=== PATIENT | male | born 1965 | race Caucasian/White ===

== ENCOUNTER → 2016-08-12 | Outpatient (CLI) | payer OTHER ==
[~2016-08-12] MED LIST: AMLO-114 PO; ATOR-22 PO; CETI10TA84 PO; CYCL10TA6 PO; CYM/30 PO; DICL50TA3 PO; GABA800T PO; HYDR-3124 PO; LANS15CA6 PO; LISI-461 PO; MISO200T PO; NF656 TOP; OXYC1TAB3 PO; PRED20TA PO; RANI150T3 PO; TRAM1CAP; TRAM1TAB96 PO; TRAM200T16 PO; TRAZ50TA35 PO
== END | disposition home or self-care (01) ==
LOC: C.RDSM 08:00
PROVIDERS: ATTEND Orthopaedic Surgery Sports Medicine
DX: M17.0 Bilateral primary osteoarthritis of knee (principal)

== ENCOUNTER 2017-02-07 03:36 | Emergency (ER) | payer OTHER ==
[~2017-02-07] VITALS: Ht 185.4 cm; Wt 156.0 kg
[~2017-02-07 03:36] MED LIST changes: -HYDR-3124 PO; -LANS15CA6 PO; -NF656 TOP; -OXYC1TAB3 PO; -PRED20TA PO; -RANI150T3 PO; -TRAM1TAB96 PO; -TRAM200T16 PO
[2017-02-07 03:39] VITALS: TEMP 37.5; Ht 185.4 cm; Wt 156.0 kg
[2017-02-07] MEDS ORDERED: KETOROLAC TROMETHAMINE 30 MG/ML VIAL IV STA (03:54)
[2017-02-07] MEDS ORDERED: ONDANSETRON INJ 2 MG/ML 2 ML VIAL IV STA (03:54)
[2017-02-07] MEDS ORDERED: MoRPHine SULFATE 10 MG/ML CARP/VIAL IV STA ×2 (03:54→06:06)
[2017-02-07] MEDS ORDERED: DEXAMETHASONE SOD INJ 10 MG/ML VIAL IV ONE (04:00)
[2017-02-07] MEDS ORDERED: SODIUM CHLORIDE 0.9% 1000ML 1,000 ML IV ONE (04:00)
[2017-02-07 04:29] LABS: BASO % 0.4 %; BASO ABS # 0.05 K/uL (0-0.2); COMPLETE YES; EOS % 1.3 %; HEMATOCRIT 42.2 % (42-52); IG% 0.4 %; LYMPH % 18.9 %; LYMPH ABS # 2.14 K/uL (1.2-3.4); MEAN CELL VOLUME 87.2 fL (80-100); MEAN CORPUSCULAR HEMOGLOBIN 28.9 pg (25-34); MEAN CORPUSCULAR HGB CONC 33.2 g/dl (32-36); MEAN PLATELET VOLUME 8.8 fL (7.4-10.4); MONO % 8.8 %; NEUT % 70.2 %; PLATELET COUNT 344 K/uL (130-400); RED BLOOD COUNT 4.84 M/uL (4.7-6.1); WHITE BLOOD COUNT 11.31 K/uL (4.8-10.8)
[2017-02-07 04:32] LABS: URINE APPEARANCE CLEAR (CLEAR); URINE BILIRUBIN NEG (NEG); URINE COLOR YELLOW; URINE NITRITE NEG (NEG); URINE SPECIFIC GRAVITY 1.011 (1.000-1.030); UROBILINOGEN NEG (NEG); ZZUR CULT IF INDIC CLEAN CATCH NO
[2017-02-07 04:39] LABS: MANUAL MICROSCOPIC REQUIRED? NO; REVIEW REQ? NO
[2017-02-07 04:47] LABS: BUN/CREATININE RATIO 8.9 (10-20); POTASSIUM 3.5 mmol/L (3.5-5.1)
[2017-02-07 04:50] LABS: ALB/GLOB RATIO 0.9 (0.9-2)
[2017-02-07] MEDS ORDERED: TRAM1TAB96 PO (06:03)
[2017-02-07] MEDS ORDERED: TRAM200T16 PO (06:03)
[2017-02-07] MEDS ORDERED: LANS15CA6 PO (06:04)
[2017-02-07] MEDS ORDERED: NF656 TOP (06:05)
[2017-02-07] MEDS ORDERED: RANI150T3 PO (06:06)
[2017-02-07] MEDS ORDERED: HYDR-3124 PO (06:06)
[2017-02-07] MEDS ORDERED: OXYC1TAB3 PO (06:08)
[2017-02-07] MEDS ORDERED: PRED20TA PO (06:08)
[2017-02-07 07:03] VITALS: BP 142/82; PULSE 90; O2SAT 96
--- NOTE | 2017-02-07 07:17 | DIAGNOSTIC IMAGING REPORT ---
L-SPINE MIN 4 VIEWS ROUTINE CLINICAL HISTORY: Low back pain. COMPARISON: None FINDINGS: There is slight retrolisthesis of L3 on L4 and slight anterolisthesis of L4 and L5. Vertebral body heights are maintained. There is no fracture or suspicious lesion within the lumbar spine. There is mild multilevel disc space narrowing with osteophytosis. There is moderate facet arthrosis. IMPRESSION: 1. No acute lumbar spine fracture or subluxation. 2. Mild to moderate multilevel degenerative disc disease and facet arthrosis. Electronically signed by: Oli Brown M.D. 02/07/2017 7:16 AM Dictated Date/Time: 02/07/2017 7:14 AM
--- NOTE | 2017-02-08 12:08 | EMERGENCY ROOM VISIT NOTE ---
History First contact with patient: 03:41 Chief Complaint: BACK PAIN Stated Complaint: BACK PAIN History of Present Illness The patient is a 51 year old male who presents to the Emergency Room with complaints of low back pain with radiation down his bilateral legs. The patient has a history of chronic back pain and follows with Dr. Alanis at [facility] orthopedics. The patient is on chronic tramadol for his back pain, and states that he has had slowly worsening pain over the past 2 days. He does not recall a new injury or trauma. He does not have saddle paresthesias or difficulty with urination. At baseline the patient uses canes to ambulate. He typically follows with the [facility] in [facility] for his PCP needs. He has not contacted his PCP or his orthopedist regarding his symptoms. He rates his current discomfort a 9/10. Review of Systems More than 10 systems were reviewed and otherwise negative with the exception of history of present illness. Past Medical/Surgical History Chronic back pain Family History No pertinent family history Social History Smoking Status: Current Every Day Smoker Current/Historical Medications Scheduled Amlodipine (Norvasc), 10 MG PO DAILY Atorvastatin (Lipitor), 20 MG PO DAILY Cetirizine (Zyrtec), 10 MG PO DAILY Cyclobenzaprine Hcl (Flexeril), 10 MG PO TID Diclofenac (Voltaren), 50 MG PO BID Duloxetine HCl (Cymbalta), 3 CAP PO DAILY Gabapentin (Neurontin), 800 MG PO TID Hydroxyzine Hcl (Atarax), 25 MG PO TID Lansoprazole (Prevacid), 30 MG PO BID Lidocaine (Lidoderm Patch 5%), 3 PATCH TOP DAILY Lisinopril (Zestril), 10 MG PO DAILY Misoprostol (Cytotec), 200 MCG PO Q12 Oxycodone Immediate Rel Tab (Roxicodone Ir), 1-2 TAB PO Q6 Prednisone (Prednisone), 0 PO DAILY Ranitidine Hcl (Zantac), 150 MG PO BID Tramadol Hcl (Tramadol Hcl Er), 100 MG PO DAILY Tramadol Hcl (Tramadol Hcl Er), 200 MG PO DAILY Trazodone Hcl (Trazodone), 50-100 MG PO HS Physical Exam Vital Signs Date Time Temp Pulse Resp B/P (MAP) Pulse Ox O2 Delivery O2 Flow Rate FiO2 7/25/17 07:03 90 20 142/82 96 Room Air 02/07/17 06:16 90 20 139/72 93 Room Air 02/07/17 05:03 94 20 145/72 94 Room Air 02/07/17 03:39 37.5 94 22 154/85 98 Room Air Pain Rating (0-10): 8.0 Physical Exam VITALS: Vitals are noted on the nurse's note and reviewed by myself. Vital signs stable. GENERAL: Well-developed, well-nourished, white male, who is in no acute distress and resting comfortably. Patient is cooperative with the examination. HEAD: Normocephalic atraumatic. NECK: Supple without nuchal rigidity. No lymphadenopathy. No thyromegaly. Cervical spine is nontender. HEART: Regular rate and rhythm without murmurs gallops or rubs. LUNGS: Clear to auscultation bilaterally without wheezes, rales or rhonchi. No retractions or accessory muscle use. MUSCULOSKELETAL: No significant tenderness of the cervical or thoracic spine. There is mild lumbar spine and right SI joint tenderness. No saddle paresthesias. Positive straight leg raise bilateral. No redness or edema. NEURO: Patient was alert and oriented to person place and time. CN II through XII grossly intact. Deep tendon reflexes 2+ throughout. No focal neurological deficits SKIN: The skin was without rashes, erythema, edema, or bruising. Capillary reflex less than 2 seconds. Medical Decision & Procedures ER Provider Diagnostic Interpretation: L-SPINE MIN 4 VIEWS ROUTINE CLINICAL HISTORY: Low back pain. COMPARISON: None FINDINGS: There is slight retrolisthesis of L3 on L4 and slight anterolisthesis of L4 and L5. Vertebral body heights are maintained. There is no fracture or suspicious lesion within the lumbar spine. There is mild multilevel disc space narrowing with osteophytosis. There is moderate facet arthrosis. IMPRESSION: 1. No acute lumbar spine fracture or subluxation. 2. Mild to moderate multilevel degenerative disc disease and facet arthrosis. Laboratory Results 02/07/17 04:10 Red Blood Count 4.84, Mean Corpuscular Volume 87.2, Mean Corpuscular Hemoglobin 28.9, Mean Corpuscular Hemoglobin Concent 33.2, Mean Platelet Volume 8.8, Neutrophils (%) (Auto) 70.2, Lymphocytes (%) (Auto) 18.9, Monocytes (%) (Auto) 8.8, Eosinophils (%) (Auto) 1.3, Basophils (%) (Auto) 0.4, Neutrophils # (Auto) 7.93, Lymphocytes # (Auto) 2.14, Monocytes # (Auto) 1.00, Eosinophils # (Auto) 0.15, Basophils # (Auto) 0.05 02/07/17 04:10 Test 02/07/17 04:10 White Blood Count 11.31 K/uL (4.8-10.8) Red Blood Count 4.84 M/uL (4.7-6.1) Hemoglobin 14.0 g/dL (14.0-18.0) Hematocrit 42.2 % (42-52) Mean Corpuscular Volume 87.2 fL (80-100) Mean Corpuscular Hemoglobin 28.9 pg (25-34) Mean Corpuscular Hemoglobin Concent 33.2 g/dl (32-36) Platelet Count 344 K/uL (130-400) Mean Platelet Volume 8.8 fL (7.4-10.4) Neutrophils (%) (Auto) 70.2 % Lymphocytes (%) (Auto) 18.9 % Monocytes (%) (Auto) 8.8 % Eosinophils (%) (Auto) 1.3 % Basophils (%) (Auto) 0.4 % Neutrophils # (Auto) 7.93 K/uL (1.4-6.5) Lymphocytes # (Auto) 2.14 K/uL (1.2-3.4) Monocytes # (Auto) 1.00 K/uL (0.11-0.59) Eosinophils # (Auto) 0.15 K/uL (0-0.5) Basophils # (Auto) 0.05 K/uL (0-0.2) RDW Standard Deviation 44.3 fL (36.4-46.3) RDW Coefficient of Variation 13.9 % (11.5-14.5) Immature Granulocyte % (Auto) 0.4 % Immature Granulocyte # (Auto) 0.04 K/uL (0.00-0.02) Urine Color YELLOW Urine Appearance CLEAR (CLEAR) Urine pH 6.0 (4.5-7.5) Urine Specific [place] 1.011 (1.000-1.030) Urine Protein NEG (NEG) Urine Glucose (UA) NEG (NEG) Urine Ketones NEG (NEG) Urine Occult Blood NEG (NEG) Urine Nitrite NEG (NEG) Urine Bilirubin NEG (NEG) Urine Urobilinogen NEG (NEG) Urine Leukocyte Esterase NEG (NEG) Anion Gap 8.0 mmol/L (3-11) Est Creatinine Clear Calc Drug Dose 139.4 ml/min Estimated GFR () 102.0 Estimated GFR (Non- 88.0 BUN/Creatinine Ratio 8.9 (10-20) Calcium Level 9.0 mg/dl (8.5-10.1) Total Bilirubin 0.3 mg/dl (0.2-1) Aspartate Amino Transf (AST/SGOT) 13 U/L (15-37) Alanine Aminotransferase (ALT/SGPT) 31 U/L (12-78) Alkaline Phosphatase 92 U/L (45-117) Total Protein 7.6 gm/dl (6.4-8.2) Albumin 3.7 gm/dl (3.4-5.0) Globulin 3.9 gm/dl (2.5-4.0) Albumin/Globulin Ratio 0.9 (0.9-2) Medications Administered Medications (Trade) Dose Ordered Sig/Ranjit Route Start Time Stop Time Status Last Admin Dose Admin Dexamethasone Sodium Phosphate (Decadron Inj) 10 mg NOW ONCE IV 02/07/17 04:00 02/07/17 04:01 DC 02/07/17 04:16 10 MG Morphine Sulfate (MoRPHine SULFATE INJ) 8 mg NOW STAT IV 02/07/17 03:54 02/07/17 03:56 DC 02/07/17 04:20 8 MG Ketorolac Tromethamine (Toradol Inj) 30 mg NOW STAT IV 02/07/17 03:54 02/07/17 03:56 DC 02/07/17 04:18 30 MG Ondansetron HCl (Zofran Inj) 4 mg NOW STAT IV 02/07/17 03:54 02/07/17 03:56 DC 02/07/17 04:15 4 MG Sodium Chloride 1,000 ml @ 999 mls/hr Q1H1M ONCE IV 02/07/17 04:00 02/07/17 05:00 DC 02/07/17 04:18 999 MLS/HR Morphine Sulfate (MoRPHine SULFATE INJ) 8 mg NOW STAT IV 02/07/17 06:06 02/07/17 06:07 DC 02/07/17 06:15 8 MG ED Course Physical exam and history were performed. Nursing notes, EMR, and Medication List were personally reviewed. Patient appears to have acute on chronic low back pain. He is describing sciatic symptoms. The patient does not have obvious signs of infection or neurologic deficit. He is not regularly seen here with this complaint. IV access was established and labs were obtained. The patient was hydrated and medicated as above. Plain films were performed. The patient's blood work does not show a grossly elevated white blood cell count or significant electrolyte imbalance. X-rays are with some chronic disease but no acute process. Overall the patient had significant improvement of his discomfort after the above interventions. He does appear stable for discharge home. The patient will be given a course of OxyIR and prednisone. He is to contact his orthopedist and primary care for further management. The patient was pleased with this plan and voiced understanding. Of note, as I was leaving at the end of my shift, I personally witnessed the patient walking outside the hospital on the side of the road after being discharged. He had indicated that his father was going to pick him up from the emergency department. He did not appear to be in any distress when ambulating. The chart was completed utilizing [employer] Speech Voice Recognition Software. Grammatical errors, random word insertions, pronoun errors, and incomplete sentences are an occasional consequence of this system due to software limitations, ambient noise, and hardware issues. Any formal questions or concerns about the content, text, or information contained within the body of this dictation should be directly addressed to the provider for clarification. . Medical Decision Differential diagnosis: Etiologies such as musculoskeletal, disc herniation, fracture, aortic disease, metastatic disease, cord compression, discitis, infection, renal colic, gastrointestinal, acute exacerbation of chronic back pain, sciatica, cauda equina, as well as others were entertained. Medication Reconcilliation Current Medication List: was personally reviewed by me Blood Pressure Screening Blood pressure disposition: Referred to PCP Impression Primary Impression: Low back pain with sciatica Departure Information Dispostion Home / Self-Care Condition GOOD Prescriptions Prednisone (Prednisone) 20 Mg Tab 0 PO DAILY, #18 TAB 3 DAILY FOR 3 DAYS, THEN 2 DAILY FOR 3 DAYS, THEN 1 DAILY FOR 3 DAYS. Prov: Ehsan Perez PA-C 02/07/17 Oxycodone Immediate Rel Tab (ROXICODONE IR) 5 Mg Tab 1-2 TAB PO Q6 for Pain, #24 TAB Prov: Ehsan Perez PA-C 02/07/17 Forms HOME CARE DOCUMENTATION FORM, IMPORTANT VISIT INFORMATION Patient Instructions My [facility] Additional Instructions You were seen and evaluated today on an emergency basis only. This is not a substitute for, or an effort to provide, complete comprehensive medical care. It is not possible to recognize and treat all injuries or illnesses in a single emergency department visit. For this reason it is recommended that you followup with your primary care physician and/or the route sales specialist by telephone in the morning to arrange appropriate follow-up this week. Let them know you were seen in the ER to help facilitate care. For baseline pain relief you may alternate ibuprofen and acetaminophen every 4 hours for pain control. Take 600 mg ibuprofen (Advil) and then 4 hours later take 1000 mg acetaminophen (Tylenol). Do not take more than 3000 mg acetaminophen in a single day. Take prednisone as prescribed Oxycodone (OxyIR) 5mg: Take ONE or TWO pills every SIX hours for breakthrough pain. Avoid alcohol, operating machinery or dangerous equipment, working on ladders or roofs, DRIVING, or situations where being under the influence may be dangerous. It is recommended to use an [id number] stool softener such as Colace, 100mg twice daily while taking this medication to avoid constipation. Do not drink or drive today as you were provided narcotic medication here in the department. You are welcome to return to the emergency department anytime with new, worsening, or concerning symptoms.
== END 2017-02-07 07:03 | disposition home or self-care (01) ==
LOC: EDBD 03:36 → C.EDB 03:36
DX: M54.40 Lumbago with sciatica, unspecified side (principal); G89.29 Other chronic pain; F17.200 Nicotine dependence, unspecified, uncomplicated; M51.36 Other intervertebral disc degeneration, lumbar region

== ENCOUNTER 2019-03-26 05:07 | Inpatient (IN) ==
--- NOTE | 2019-02-25 07:48 | History & Physical Report ---
Date of Service February 25, 2019 date of surgery: 03-26-19 Assessment & Plan (1) Tricompartment osteoarthritis of right knee: Risks and benefits of procedure discussed in detail today, patient would like to proceed with a Right total knee replacement at [facility] as scheduled. will obtain medical clearance prior to surgery as well as obtain PATs at [facility]. Will place on ASA 81mg po bid x 1 month post op, f/u 2 weeks post op for routine post-operative care and x-ray, sooner if having any problems. will make arrangements for HHPT at the time of discharge. At this point in time, has failed conservative measures and would like to proceed with surgical intervention. History of Present Illness Chief Complaint: right knee pain Primary Care Provider: Mando Matos Mr Kolb is a 53 year old male who complains of right knee pain, presents for pre-op evaluation prior to a right total knee replacement at [facility]. He presents with pain and stiffness in his right knee. He states that the symptoms have been chronic non-traumatic. The symptoms occur constantly with intermittent worsening. Currently the patient states that the symptoms are moderate-severe. The pain is described as aching, sharp and throbbing. He rates his current pain as 8/10. The symptoms are aggravated by ascending stairs, daily activities, first steps while awake, kneeling, repetitive activities, sleeping in any position, squatting and walking. Edward states that the symptoms are relieved by no specific activity. In addition to knee pain he is also experiencing nighttime awakening, limping, pain, stiffness, tenderness and weakness. Pertinent negatives include chills and fever. Prior pain medications include Ultram and Lidocaine patches. Prior NSAIDs include Voltaren and ibuprofen. He has been treated with a corticosteroid injection on the right side with no relief, he has also tried previous visco supplementation. Allergies Allergy/AdvReac Type Severity Reaction Status Date / Time etodolac Allergy Severe SCREAMING Verified 02/22/19 14:45 HEADACHE Home Medications Home Medications Medication Instructions Recorded Confirmed Type amlodipine 10 mg PO QAM 02/22/19 02/22/19 History atorvastatin 20 mg PO HS 02/22/19 02/22/19 History cyclobenzaprine 10 mg PO TID 02/22/19 02/22/19 History duloxetine 30 mg PO TID 02/22/19 02/22/19 History gabapentin 800 mg PO TID 02/22/19 02/22/19 History guaifenesin [Mucinex] 600 mg PO TID 02/22/19 02/22/19 History hydroxyzine HCl 50 mg PO TID PRN 02/22/19 02/22/19 History lansoprazole 15 mg PO BID 02/22/19 02/22/19 History lidocaine 1 patch TOPICAL DAILY 02/22/19 02/22/19 History lisinopril 10 mg PO QAM 02/22/19 02/22/19 History metformin 1,000 mg PO BID 02/22/19 02/22/19 History misoprostol 400 mcg PO BID 02/22/19 02/22/19 History ranitidine HCl 300 mg PO HS 02/22/19 02/22/19 History tramadol 100 mg PO QAM 02/22/19 02/22/19 History tramadol 200 mg PO QAM 02/22/19 02/22/19 History trazodone 50 mg PO HS 02/22/19 02/22/19 History Past Med/Surg History Medical History Anxiety Depression Diabetes mellitus, type 2 GERD (gastroesophageal reflux disease) Hyperlipidemia Hypertension Osteoarthritis Sleep apnea CPAP Surgical History Hx of carpal tunnel repair RIGHT AND LEFT Hx of colonoscopy Family History Unknown Hypertension High cholesterol Social History Preferred Language: French Communication Ability: Effective Mandolin Repairer Required: No Beliefs That Will Affect Care: None Current Living Situation: Significant Other Other Information That Helps Us Care for You: No Feels Safe at Home: Yes Safety Concerns: Feels Safe At This Time Smoking Status: Current every day smoker Cigarettes Per Day: 1PPD ; Do You Dip or Chew Tobacco: No ; Second Hand Exposure: No ; Tobacco Cessation Education Requested by Patient: No Hx Alcohol Use: No Hx Substance Use: No Review of Systems 2 Review of Systems: All systems reviewed & are unremarkable except as noted in HPI & below Constitutional: no fever, no chills and no sweats Respiratory: no cough and no dyspnea Cardiovascular: no chest pain, no dyspnea and no orthopnea Gastrointestinal: no abdominal pain, no nausea and no vomiting Musculoskeletal: as per Subjective / HPI Physical Exam Physical Exam: Ht: 6ft 1in Wt: 147.4kg BP: 130/76 Pulse: 82 Constitutional: WD/WN, vitals as above no acute distress Respiratory: normal respiratory effort, lungs clear to auscultation no respiratory distress, no labored breathing and does not use accessory muscles Cardiovascular: RRR, no murmur, no edema Gastrointestinal (Abdomen): normal bowel sounds, soft, nontender, no hepatosplenomegaly Musculoskeletal: right knee Physical Exam- patient ambulates with a slight limp, there is no erythema, warmth, ecchymosis or atrophy noted, +1 effusion, greatest tenderness over his medial joint line and anterior knee joint. there is crepitation with motion, pedro's negative, posterior drawer negative. knee stable with valgus/varus stress. no extensor lag. pain with active range of motion, AROM 0/3/110, Passive ROM 0/3/115. No pain with active/passive ROM of ankle. Lower Extremity Strength normal. Lower Extremity Neuro-vascular is normal Results & Data Diagnostic Findings right knee xray from January 2019 showing complete loss joint space medial compartment with overall varus alignment, there is also narrowing of the patellofemoral joint. there is osteophyte formation, subchondral sclerosis noted, no loose bodies, no acute bony pathology. overall impression tricompartmental degenerative changes to the right knee.
--- NOTE | 2019-02-25 13:01 | PAT Medication Instructions ---
Medication Instructions Date of Service February 25, 2019 Home Medications amlodipine 10 mg PO QAM atorvastatin 20 mg PO HS cyclobenzaprine 10 mg PO TID duloxetine 30 mg PO TID gabapentin 800 mg PO TID guaifenesin [Mucinex] 600 mg PO TID hydroxyzine HCl 50 mg PO TID PRN lansoprazole 15 mg PO BID lidocaine 1 patch TOPICAL DAILY lisinopril 10 mg PO QAM metformin 1,000 mg PO BID misoprostol 400 mcg PO BID ranitidine HCl 300 mg PO HS tramadol 100 mg PO QAM tramadol 200 mg PO QAM trazodone 50 mg PO HS DO NOT take the morning of surgery cyclobenzaprine 10 mg PO TID guaifenesin [Mucinex] 600 mg PO TID hydroxyzine HCl 50 mg PO TID PRN lisinopril 10 mg PO QAM metformin 1,000 mg PO BID Take morning of surgery With a small sip of water, OTHERWISE NOTHING TO EAT OR DRINK AFTER MIDNIGHT: amlodipine 10 mg PO QAM duloxetine 30 mg PO TID gabapentin 800 mg PO TID lansoprazole 15 mg PO BID lidocaine 1 patch TOPICAL DAILY (do not place near surgical site) misoprostol 400 mcg PO BID tramadol 100 mg PO QAM (if needed, may be taken up to four hours before surgery) tramadol 200 mg PO QAM (if needed, may be taken up to four hours before surgery) Take evening before surgery atorvastatin 20 mg PO HS cyclobenzaprine 10 mg PO TID duloxetine 30 mg PO TID gabapentin 800 mg PO TID guaifenesin [Mucinex] 600 mg PO TID hydroxyzine HCl 50 mg PO TID PRN (if needed) lansoprazole 15 mg PO BID lidocaine 1 patch TOPICAL DAILY metformin 1,000 mg PO BID misoprostol 400 mcg PO BID ranitidine HCl 300 mg PO HS trazodone 50 mg PO HS Other Notes If you have any questions please call us at [phone] or [phone] or [phone] or [phone]
--- NOTE | 2019-02-25 14:19 | Anesthesiology Consultation ---
Date of Service February 25, 2019 Assessment & Plan (1) Encounter for pre-operative examination: CHECK BSG AM DOS Chart Review Chart Review: Acceptable Risk for Surgery (pending surgeon-ordered PCP clearance (pt is arranging)) and Patient seen in Pre Admission Testing Teaching & Discussion Instructed NPO after midnight before surgery, except medications with 15 cc of water. Medication instructions provided according to the PAT guidelines. History Surgery Operation Date: 03/26/19 11:25 Proposed Procedures p Right Total Knee Arthroplasty - Crispin Osorio DO Height/Weight Height: 6 ft 1 in Weight: 149.7 kg Allergies Allergy/AdvReac Type Severity Reaction Status Date / Time etodolac AdvReac Severe SCREAMING Verified 02/25/19 14:15 HEADACHE Medications Home Medications Medication Instructions Recorded Confirmed Last Taken amlodipine 10 mg PO QAM 02/22/19 02/22/19 Unknown atorvastatin 20 mg PO HS 02/22/19 02/22/19 Unknown cyclobenzaprine 10 mg PO TID 02/22/19 02/22/19 Unknown duloxetine 30 mg PO TID 02/22/19 02/22/19 Unknown gabapentin 800 mg PO TID 02/22/19 02/22/19 Unknown guaifenesin [Mucinex] 600 mg PO TID 02/22/19 02/22/19 Unknown hydroxyzine HCl 50 mg PO TID PRN 02/22/19 02/22/19 Unknown lansoprazole 15 mg PO BID 02/22/19 02/22/19 Unknown lidocaine 1 patch TOPICAL DAILY 02/22/19 02/22/19 Unknown lisinopril 10 mg PO QAM 02/22/19 02/22/19 Unknown metformin 1,000 mg PO BID 02/22/19 02/22/19 Unknown misoprostol 400 mcg PO BID 02/22/19 02/22/19 Unknown ranitidine HCl 300 mg PO HS 02/22/19 02/22/19 Unknown tramadol 100 mg PO QAM 02/22/19 02/22/19 Unknown tramadol 200 mg PO QAM 02/22/19 02/22/19 Unknown trazodone 50 mg PO HS 02/22/19 02/22/19 Unknown Past Medical History Medical History Anxiety Depression Diabetes mellitus, type 2 GERD (gastroesophageal reflux disease) Hyperlipidemia Hypertension Morbid obesity Osteoarthritis Sleep apnea CPAP Exercise / Class Metabolic Activity II 4-5 Yardwork/Stairs/Walk up hill (Does stairs daily, denies CP or SOB.) Past Family History Family History Unknown Hypertension High cholesterol Past Surgical History Surgical History Hx of carpal tunnel repair RIGHT AND LEFT Hx of colonoscopy Hx of neck surgery "Deep cyst removed" Past Anesthesia History No Hx of Anesthesia Complications and No Family Hx of Anesthesia Complications History of PONV No Hx of PONV and No Hx of Motion Sickness Social History Smoking Status: Current every day smoker Smoking cigarettes per day: 1PPD Do You Dip or Chew Tobacco: No Hx Alcohol Use: No Hx Substance Use: No substance use type: does not use Review of Systems Pt denies any recent chest pain, shortness of breath, palpitations, cough, fever or URI. Physical Exam Vital Signs BP: 138/75 P: 83bpm SPO2: 96% RA T: 97.9 R: 20 Constitutional + morbidly obese ENMT Mouth: + chipped teeth (several); no loose teeth Thyromental Distance: < 3.5 Finger Breadths (3) Mallampati Class: II Neck + short neck and + thick neck (very); neck extension not limited Respiratory normal respiratory effort Auscultation: lungs clear to auscultation bilaterally Cardiovascular Rate/Rhythm: regular rate and regular rhythm Heart Sounds: no murmur Vessels: no carotid bruit Testing Laboratory Results 02/25/19 14:10 02/25/19 14:10 PT 10.3 Seconds (9.0-12.0) 02/25/19 14:10 INR 1.0 (0.9-1.1) 02/25/19 14:10 APTT 27.1 Seconds (21.0-31.0) 02/25/19 14:10 Hemoglobin A1c 6.6 % (4.5-5.6) H 02/25/19 14:10 Urine Color Yellow 02/25/19 14:10 Urine Appearance Clear (Clear) 02/25/19 14:10 Urine pH 7.5 (4.5-7.5) 02/25/19 14:10 Ur Specific [place] 1.018 (1.000-1.030) 02/25/19 14:10 Urine Protein Negative (Negative) 02/25/19 14:10 Urine Glucose (UA) Negative (Negative) 02/25/19 14:10 Urine Ketones Negative (Negative) 02/25/19 14:10 Urine Nitrite Negative (Negative) 02/25/19 14:10 Ur Leukocyte Esterase Negative (Negative) 02/25/19 14:10 Blood Type A Positive 02/25/19 14:10 Antibody Screen NEGATIVE 02/25/19 14:10 Electrocardiogram Date: 02/25/19 Findings: + NSR @ (75) Rightward axis, nonspecific ST and TWA. Chest X-Ray Date: 02/25/19 Findings: + NAD
--- NOTE | 2019-02-25 14:54 | XRay Report ---
TWO VIEW CHEST CLINICAL HISTORY: Preoperative examination. FINDINGS: PA and lateral chest radiographs are obtained. No prior studies are available for compariso n at the time of dictation. The heart is mildly enlarged. The pulmonary vasculature is noncongested . Mild atelectasis seen at the lung bases. The lungs and pleural spaces are otherwise clear. There i s no pneumothorax. The bony thorax appears intact. Degenerative changes noted in the thoracic spine. IMPRESSION: No active disease in the chest. Electronically signed by: Herber Horton M.D. 02/25/2019 2:52 PM
[2019-02-25 15:38] LABS: Basophils # (auto) 0.04 K/uL (0-0.2); Basophils % (auto) 0.5 %; Eosinophils # (auto) 0.24 K/uL (0-0.5); Eosinophils % (auto) 2.9 %; Hematocrit (blood only) 40.9 % (42-52); Hemoglobin 14.3 g/dL (14.0-18.0); Immature Granulocytes # (auto) 0.01 K/uL (0.00-0.02); Immature Granulocytes % (auto) 0.1 %; Lymphocytes # (auto) 2.93 K/uL (1.2-3.4); Lymphocytes % (auto) 35.8 %; Mean Corpuscular Volume 85.9 fL (80-100); Mean Platelet Volume 9.1 fL (7.4-10.4); Monocytes # (auto) 0.64 K/uL (0.11-0.59); Monocytes % (auto) 7.8 %; Neutrophils # (auto) 4.32 K/uL (1.4-6.5); Neutrophils % (auto) 52.9 %; Platelet Count 247 K/uL (130-400); RDW Coefficient of Variation 14.2 % (11.5-14.5); RDW Standard Deviation 44.5 fL (36.4-46.3); Red Blood Count 4.76 M/uL (4.7-6.1); White Blood Count 8.18 K/uL (4.8-10.8)
[2019-02-25 15:40] LABS: Appearance Urine Clear (Clear); Bilirubin Urine Negative (Negative); Blood Urine Negative (Negative); Color Urine Yellow; Glucose Urine UA Negative (Negative); Ketones Urine Negative (Negative); Leukocyte Esterase Urine Negative (Negative); Nitrite Urine Negative (Negative); Protein Urine Negative (Negative); Specific Gravity Urine 1.018 (1.000-1.030); Urobilinogen Urine Negative (Negative); pH Urine 7.5 (4.5-7.5)
[2019-02-25 15:45] LABS: BUN Creatinine Ratio 11.4 (10-20); Calcium 8.7 mg/dl (8.5-10.1); Creatinine Clr Calc Pharmacy 144.9 ml/min; Est GFR (African American) 111.2; Potassium 3.7 mmol/L (3.5-5.1)
[2019-02-25 15:49] LABS: Partial Thromboplastin Time 27.1 Seconds (21.0-31.0); Prothrombin Time 10.3 Seconds (9.0-12.0)
[2019-02-26 05:46] LABS: Estimated Average Glucose 143 mg/dl; Hemoglobin A1C 6.6 % (4.5-5.6)
[2019-03-26] MEDS ORDERED: CeleBREX 200 MG CAP PO SCH (06:00)
[2019-03-26] MEDS ORDERED: ACETAMINOPHEN 500 MG TAB PO SCH (06:00)
[2019-03-26] MEDS ORDERED: FAMOTIDINE 20 MG TAB PO SCH (06:00)
[2019-03-26] MEDS ORDERED: ROPIVACAINE 0.5% HCL/PF 150 MG, BUPIVACAINE 0.5% MPF 30 ML, EPINEPHrine 30MG/30ML (OR U... INSTIL SCH (06:00)
[2019-03-26] MEDS ORDERED: GABAPENTIN 900 MG DOSE PO SCH (06:00)
[2019-03-26] MEDS ORDERED: LR 500ML BOLUS, THEN 15ML/HR IV SCH (06:00)
[2019-03-26] MEDS ORDERED: METOCLOPRAMIDE HCL 10 MG TABLET PO SCH (06:00)
[2019-03-26] MEDS ORDERED: TRANEXAMIC ACID 1,000 MG **IV Pre-op IV SCH (06:00)
[2019-03-26] MEDS ORDERED: CEFAZOLIN 3000MG 72.5 ML IV SCH (06:00)
[2019-03-26] MEDS ORDERED: dexAMETHasone 4 MG TAB PO SCH (06:00)
[2019-03-26] MEDS ORDERED: ROPIVACAINE 0.5% 5 MG/ML 30 ML VIAL ONE (06:27)
[2019-03-26] MEDS ORDERED: BUPIVACAINE 0.5 % 5 MG/1 ML PF 10ML VIAL ONE (06:27)
[2019-03-26] MEDS ORDERED: BUPIVACAINE 0.25% 30 ML VIAL ONE (06:28)
[2019-03-26] MEDS ORDERED: TRANEXAMIC ACID 1,000 MG **IV Intra-op IV SCH (06:30)
[2019-03-26] MEDS ORDERED: MIDAZOLAM HCL 1 MG/ML 2ML VIAL ONE ×2 (06:42)
[2019-03-26] MEDS ORDERED: fentaNYL citrate 100 MCG/2 ML VIAL ONE (06:45)
[2019-03-26] MEDS ORDERED: ORTHO JOINT ANESTHETIC ONE (07:01)
[2019-03-26] MEDS ORDERED: BACITRACIN INJ 50,000 UNIT VIAL ONE (07:01)
--- NOTE | 2019-03-26 07:10 | History & Physical Bridge Note ---
Date of Service March 26, 2019 History & Physical Bridge Note I have examined the patient, reviewed the History & Physical and in the interval since the performance of the History & Physical I have noted the following changes of clinical significance: no changes noted
[2019-03-26] MEDS ORDERED: LIDOCAINE HCL 2% 2 ML VIAL/AMP(20MG/ML) INFIL ONE (07:45)
[2019-03-26] MEDS ORDERED: PROPOFOL IV EMULSION 10 MG/ML 20 ML VIAL IV ONE ×2 (07:46→08:35)
[2019-03-26] MEDS ORDERED: ONDANSETRON INJ 2 MG/ML 2 ML VIAL ONE (07:46)
[2019-03-26] MEDS ORDERED: ATROPINE SULFATE 0.1 MG/ML 10ML SYR IV PRN (07:54)
[2019-03-26] MEDS ORDERED: ONDANSETRON INJ 2 MG/ML 2 ML VIAL IV PRN ×2 (07:54→10:32)
[2019-03-26] MEDS ORDERED: fentaNYL citrate 100 MCG/2 ML VIAL IV PRN (07:54)
[2019-03-26] MEDS ORDERED: ePHEDrine sulfate 50 MG/ML AMP IV PRN (07:54)
--- NOTE | 2019-03-26 08:39 | Operative Report ---
Post Operative Report Pre & Post Diagnosis Operation Date: 03/26/19 07:15 Pre-Op Diagnosis: Unilateral Primary Osteoarthritis, Right Knee Post-Op Diagnosis: Unilateral Primary Osteoarthritis, Right Knee Procedure Operation Date: 03/26/19 07:15 Actual Procedures p Right Total Knee Arthroplasty, Cemented(Right) utilizing [employer] Onyvax jourclinton 2 patient matched total knee arthroplasty size 8 femur 6 tibia 13 polyethylene 32 oval patella- Crispin Osorio DO Surgeon Crispin Osorio DO Towel Hemmer Asher PARKER Estimated Blood Loss 5 Findings Consistent with Post-Op Diagnosis Patient presents with ongoing planes of pain trouble to the right knee times surgery patient with evidence of varus alignment eburnated bone but subchondral cystic changes marginal osteophytes varus alignment with moderate to large effusion right knee Specimens Bone and cartilage Drains Medium bore Hemovac Complications none Disposition Accompanied Patient To Recovery: No Disposition: Recovery Room Indications Patient presents with severe end-stage tricompartmental degenerative joint disease right knee for right total knee arthroplasty patient is failed attempted conservative management physical therapy anti-inflammatories relative rest activity modification corticosteroid injection Visco supplementation presents for right total knee arthroplasty Description of Procedure After proper prepping and draping of the Right lower extremity anterior midline incision was made over the region of the extensor extensor mechanism after meticulous hemostasis was obtained and maintained in subcutaneous tissues a medial parapatellar incision was made The patella was subluxed lateralward the medial lateral gutter were cleaned from any hypertrophic synovitis and scar tissue of the distal femoral block was placed and the distal femoral osteotomy cut was made subsequently the chamfers anterior and posterior osteotomy cuts were made utilizing the 4-in-1 block the tibia was subsequently subluxed anteriorward medial and ateral meniscal remnants were excised in their entirety remnants of the anterior and posterior cruciate ligaments were excised in their entirety excellent exposure of the proximal tibia was obtained the tibial osteotomy guide was placed on the proximal tibial osteotomy cut was made once again the knee was irrigated with copious amounts of sterile saline solution the patella was subsequently everted lateralward thickened scar tissue around the patella was removed the patella was subsequently cut utilizing a freehand technique and was drilled prepared for final preparation and placement of patella socially flexion-extension gaps were checked and the equal and symmetric trials were placed to the appropriate femoral and tibial trials with poly-spacer being placed for equal flexion and extension gaps and full range of motion including extension to 0 and flexion to 140 the trial components after having been taken to recovery range of motion was subsequently removed meticulous hemostasis was obtained and maintained subsequently a knee block injection of joint cocktail including ropivacaine 0.5% 150 mg. Bupivacaine 0.5% epinephrine 1-200,030 mL's toradol 30 mg dexamethasone 4 mg ketamine 10 mg clonidine 100 micrograms normal saline solution 30 mg was infiltrated into the soft tissues of the posterior knee medial lateral gutters and periosteal synovium special attention was paid to protect neurovascular structures at all times subsequently trial components having been removed the knee was irrigated with sterile saline solution. debris was removed the proximal tibia was subsequently prepared and was made ready for the placement of the tibial component tibial component was also cemented and tamped into position the femoral component was subsequently placed and cemented in the position the patellar component was subsequently cemented in position because hemostasis once again obtained and maintained wound having been thoroughly irrigated with debridement and debridement lavage was performed as well as a medial parapatellar incision closed with #1 Vicryl in interrupted fashion subcutaneous was closed with #2 Vicryl skin was closed with skin clips. PA-C was necessary for prepping and drapping as well as wound closure of deep fascia Sub cutaneous tissue and skin and was necessary for the case. A sterile compressive dressing was placed patient was taken to recovery in stable condition of report dictated by Devon the patient was properly identified by myself prior to the surgery I attest to the content of the Intraoperative Record and any orders documented therein. Any exceptions are noted below. I attest to the content of the Intraoperative Record and any orders documented therein. Any exceptions are noted below.
--- NOTE | 2019-03-26 10:18 | Anesthesiology Progress Note ---
Date of Service March 26, 2019 Anesthesia Post Procedure Vital Signs Vital Signs: Temp Pulse Pulse Resp BP Pulse Ox 03/26/19 10:00 79 15 105/61 98 03/26/19 09:55 36.5 C 76 14 110/62 97 03/26/19 09:45 83 14 116/58 L 96 03/26/19 09:35 83 10 L 107/55 L 99 03/26/19 09:25 79 20 111/57 L 97 03/26/19 09:19 36.0 C L 80 22 91/54 L 99 03/26/19 05:57 37.1 C 81 20 144/73 H 97 Pain Intensity Right Knee: Pain Intensity: 0 Transfer of Care Handoff Completed per policy Notes Mental Status: alert / awake / arousable and participated in evaluation Nausea / Vomiting: adequately controlled Pain: adequately controlled Airway Patency, RR, SpO2: stable & adequate BP & HR: stable & adequate Hydration State: stable & adequate Neuraxial Anesthesia: was administered and sensory block is resolving Anesthetic Complications: no major complications apparent and Pt Satisfied with anesthetic care
[2019-03-26] MEDS ORDERED: HYDROmorphone INJ 1 MG/ML SYRINGE IV PRN (10:32)
[2019-03-26] MEDS ORDERED: BISACODYL 10 MG SUPP PR PRN (10:32)
[2019-03-26] MEDS ORDERED: MAGNESIUM HYDROXIDE SUSP 30 ML UDC PO PRN (10:32)
[2019-03-26] MEDS ORDERED: ALUMINUM/MAGNESIUM SUSP 30 ML UDC PO PRN (10:32)
[2019-03-26] MEDS ORDERED: NALOXONE HCL 0.4 MG/1 ML VIAL/CARP IV PRN (10:32)
[2019-03-26] MEDS ORDERED: METOCLOPRAMIDE HCL INJ 5 MG/ML 2 ML VIAL IV PRN (10:32)
--- NOTE | 2019-03-26 10:37 | XRay Report ---
XR knee RT 2V routine CLINICAL HISTORY: 53 years-old Male presenting with Surgical Post Op. TECHNIQUE: Frontal and lateral views of the right knee were obtained. COMPARISON: None. FINDINGS: Postsurgical changes of total right knee arthroplasty with patellar resurfacing. Surgical drains in p lace. Soft tissue emphysema expected in the postsurgical setting. No periprosthetic fracture or lucen cy to no malalignment. IMPRESSION: Expected postsurgical appearance status post total right knee arthroplasty with patellar resurfacing. Electronically signed by: Moses Valenzuela M.D. 03/26/2019 10:36 AM
[2019-03-26] MEDS ORDERED: PHARMACY GLYCEMIC MGMT CONSULT PRN (10:42)
[2019-03-26] MEDS ORDERED: CARBOHYDRATES FOR HYPOGLYCEMIA PO PRN (11:00)
[2019-03-26] MEDS ORDERED: GLUCAGON FOR INJ 1 MG VIAL SQ PRN (11:00)
[2019-03-26] MEDS ORDERED: GLUCOSE 40% GEL 15 GM TUBE PO PRN (11:00)
[2019-03-26] MEDS ORDERED: DEXTROSE 50% 50 ML SYRINGE IV PRN (11:00)
[2019-03-26] MEDS ORDERED: GLUCOSE 10 TABS/TUBE PO PRN (11:00)
[2019-03-26] MEDS ORDERED: INSULIN GLARGINE SOLOSTAR 100 UNITS/ML 3 ML PEN SC ONE ×2 (11:15→21:00)
--- NOTE | 2019-03-26 12:20 | Pharmacy Report ---
Glycemic Control Consultation - Date of Service March 26, 2019 - Scope Scope: Glycemic Pharmacist consulted by Asher Phillips on 03/26 for glycemic control and to write orders per [facility] inpatient glycemic control protocol - Objective Weight: 144.923 kg Accuchecks BSG (last 24hrs): 03/26/19 05:44 POC Glucose 157 H HbA1c: Hemoglobin A1c 6.6 % (4.5-5.6) H 02/25/19 14:10 - Recent Pertinent Medications Outpatient Anti-diabetic Regimen: * Metformin 1000 mg BID * A1c = 6.6 % 02/25/19 Risk Factors for Insulin Resistance: * Steroids: Dexamethasone 8 mg PO x 1 * Recent Surgery: POD #0 * Diet: T2DM - Assessment & Plan Assessment & Plan: ASSESSMENT: * Mr. Kolb admitted post-op right knee arthroplasty * Pre-op BSG 157, A1c of 6.6% indicates good outpatient control with metformin 1000 mg BID * Patient did receive po dexamethasone, weight based insulin will be initiated close to weight based stress of 2, being slightly conservative due to good previous control, steroid given po and higher BMI insulin naive patient PLAN FOR INPATIENT GLYCEMIC CONTROL: * Holding outpatient oral diabetes medications * Basal insulin * Lantus 25 units BSG <=180 * 35 units BSG >180 * Will add additional scale at hs for additional coverage if needed * Bolus insulin * NovoLog per scale ACHS or Q6hrs while NPO * Goal Range: Low 110 mg/dL - High 140 mg/dL * Correction Factor: 20 mg/dL/unit * Nutritional / Prandial insulin per carb ratio of 1 unit per 8 grams CHO consumed * Please note that the plan above was derived based on current level of insulin resistance and hospital stress. These recommendations are appropriate for inpatient admission only. Plan of care upon discharge will need to be reassessed to avoid potential outpatient hypo/hyperglycemia. Thank you.
[2019-03-26] MEDS: INSULIN ASPART 100 UNITS/ML 3 ML PEN SC SCH ×3 (13:28→22:06)
[2019-03-26] MEDS: ACETAMINOPHEN 500 MG TAB PO SCH ×2 (13:30→22:00)
[2019-03-26] MEDS: KETOROLAC TROMETHAMINE 15 MG/ML VIAL IV SCH ×2 (13:31→21:02)
[2019-03-26] MEDS: CEFAZOLIN 2000MG 2,000 MG/15 ML SYR IV SCH ×2 (13:31→22:12)
[2019-03-26] MEDS: GABAPENTIN 400 MG CAP PO SCH ×2 (13:32→22:03)
[2019-03-26] MEDS: CYCLOBENZAPRINE HCL 10 MG TAB PO SCH ×2 (13:32→22:02)
[2019-03-26] MEDS: SODIUM CHLORIDE 0.9% 1000ML 1,000 ML IV SCH ×2 (13:36→22:32)
[2019-03-26] MEDS: OXYCODONE HCL IR 5 MG TAB (IMMEDIATE RELEASE) PO PRN ×2 (15:54→21:56)
[2019-03-26] MEDS: DULOXETINE HCL 30 MG CAP PO SCH ×2 (16:46→22:01)
[2019-03-26] MEDS ORDERED: SENNA 8.6 MG TAB PO SCH (21:00)
[2019-03-26] MEDS ORDERED: TRAZODONE HCL 50 MG TAB PO SCH (21:00)
[2019-03-26] MEDS ORDERED: ATORVASTATIN 20 MG TAB PO SCH (21:00)
[2019-03-26] MEDS: DOCUSATE SODIUM 100 MG CAP PO SCH (21:59)
[2019-03-26] MEDS: miSOPROStol 200 MCG TAB PO SCH (22:00)
[2019-03-26] MEDS: ASPIRIN 81 MG ECTAB PO SCH (22:05)
[2019-03-27] MEDS: INSULIN ASPART 100 UNITS/ML 3 ML PEN SC SCH ×4 (00:09→13:05)
[2019-03-27] MEDS: KETOROLAC TROMETHAMINE 15 MG/ML VIAL IV SCH ×2 (02:51→07:56)
[2019-03-27] MEDS: OXYCODONE HCL IR 5 MG TAB (IMMEDIATE RELEASE) PO PRN ×2 (04:25→08:54)
[2019-03-27 05:49] LABS: Hematocrit (blood only) 33.3 % (42-52); Hemoglobin 11.3 g/dL (14.0-18.0); Mean Corpuscular Hgb Conc 33.9 g/dL (32-36); Mean Corpuscular Volume 85.2 fL (80-100); Mean Platelet Volume 8.7 fL (7.4-10.4); Platelet Count 211 K/uL (130-400); RDW Coefficient of Variation 13.1 % (11.5-14.5); RDW Standard Deviation 40.7 fL (36.4-46.3); Red Blood Count 3.91 M/uL (4.7-6.1); White Blood Count 14.03 K/uL (4.8-10.8)
[2019-03-27] MEDS: ACETAMINOPHEN 500 MG TAB PO SCH ×2 (06:32→13:08)
[2019-03-27 06:38] LABS: Calcium 8.3 mg/dl (8.5-10.1); Creatinine Clr Calc Pharmacy 133.6 ml/min; Est GFR (Non-African American) 88.9
--- NOTE | 2019-03-27 07:59 | Orthopedic Progress Note ---
Date of Service March 27, 2019 Assessment & Plan (1) Tricompartment osteoarthritis of right knee: Postop day 1 status post right TKA. PT/OT protocols. Weightbearing as tolerated. DVT prophylaxis with aspirin twice daily, SCDs, MARGOTH rees. Pain management with oxycodone, Tylenol, Celebrex, IV hydromorphone. DC planning-patient is planning on outpatient PT upon discharge. We will recheck him later today to see how he is progressing with his PT. Subjective Postop day 1 status post right total knee arthroplasty. Patient is sitting up in bed awake and alert. He is doing his bedside exercises currently. Pain is controlled. He has no complaints. Denies shortness of breath, chest pain, lightheadedness. He is hoping to go home today. Physical Exam Physical Exam: Dressings are clean, dry, and intact. Calves are soft nontender. Neurovascular intact. Toes are mobile. Hemovac drainage from previous shift was 125 mL's. Results & Data Vital Signs (Past 12 Hours) Vital Signs Temp Pulse Resp BP Pulse Ox 03/27/19 03:41 36.6 C 90 16 145/75 H 96 03/27/19 00:06 36.7 C 83 16 135/76 93 Laboratory Results Laboratory Results WBC 14.03 K/uL (4.8-10.8) H 03/27/19 05:37 RBC 3.91 M/uL (4.7-6.1) L 03/27/19 05:37 Hgb 11.3 g/dL (14.0-18.0) L 03/27/19 05:37 Hct 33.3 % (42-52) L 03/27/19 05:37 MCV 85.2 fL (80-100) 03/27/19 05:37 MCH 28.9 pg (25-34) 03/27/19 05:37 MCHC 33.9 g/dL (32-36) 03/27/19 05:37 RDW Std Deviation 40.7 fL (36.4-46.3) 03/27/19 05:37 RDW Coeff of Sil 13.1 % (11.5-14.5) 03/27/19 05:37 Plt Count 211 K/uL (130-400) 03/27/19 05:37 MPV 8.7 fL (7.4-10.4) 03/27/19 05:37 Immature Gran % (Auto) 0.1 % 02/25/19 14:10 Neut % (Auto) 52.9 % 02/25/19 14:10 Lymph % (Auto) 35.8 % 02/25/19 14:10 [place] % (Auto) 7.8 % 02/25/19 14:10 Eos % (Auto) 2.9 % 02/25/19 14:10 Baso % (Auto) 0.5 % 02/25/19 14:10 Immature Gran # (Auto) 0.01 K/uL (0.00-0.02) 02/25/19 14:10 Neut # (Auto) 4.32 K/uL (1.4-6.5) 02/25/19 14:10 Lymph # (Auto) 2.93 K/uL (1.2-3.4) 02/25/19 14:10 [place] # (Auto) 0.64 K/uL (0.11-0.59) H 02/25/19 14:10 Eos # (Auto) 0.24 K/uL (0-0.5) 02/25/19 14:10 Baso # (Auto) 0.04 K/uL (0-0.2) 02/25/19 14:10 PT 10.3 Seconds (9.0-12.0) 02/25/19 14:10 INR 1.0 (0.9-1.1) 02/25/19 14:10 APTT 27.1 Seconds (21.0-31.0) 02/25/19 14:10 PTT Ratio 1.0 02/25/19 14:10 Sodium 137 mmol/L (136-145) 03/27/19 05:37 Potassium 3.7 mmol/L (3.5-5.1) 03/27/19 06:52 Chloride 104 mmol/L (98-107) 03/27/19 05:37 Carbon Dioxide 25 mmol/L (21-32) 03/27/19 05:37 Anion Gap 8.0 (3-11) 03/27/19 05:37 BUN 13 mg/dl (7-18) 03/27/19 05:37 Creatinine 0.98 mg/dl (0.6-1.4) 03/27/19 05:37 Est Cr Clr Drug Dosing 133.6 ml/min 03/27/19 05:37 Est GFR ( Amer) 103.0 03/27/19 05:37 Est GFR (Non-Af Amer) 88.9 03/27/19 05:37 BUN/Creatinine Ratio 13.0 (10-20) 03/27/19 05:37 Glucose 198 mg/dl (70-99) H 03/27/19 05:37 POC Glucose 272 (70-99) H 03/27/19 04:13 Estimat Average Glucose 143 mg/dl 02/25/19 14:10 Hemoglobin A1c 6.6 % (4.5-5.6) H 02/25/19 14:10 Calcium 8.3 mg/dl (8.5-10.1) L 03/27/19 05:37 Albumin 4.0 gm/dl (3.4-5.0) 02/25/19 14:10 Urine Color Yellow 02/25/19 14:10 Urine Appearance Clear (Clear) 02/25/19 14:10 Urine pH 7.5 (4.5-7.5) 02/25/19 14:10 Ur Specific [place] 1.018 (1.000-1.030) 02/25/19 14:10 Urine Protein Negative (Negative) 02/25/19 14:10 Urine Glucose (UA) Negative (Negative) 02/25/19 14:10 Urine Ketones Negative (Negative) 02/25/19 14:10 Urine Blood Negative (Negative) 02/25/19 14:10 Urine Nitrite Negative (Negative) 02/25/19 14:10 Urine Bilirubin Negative (Negative) 02/25/19 14:10 Urine Urobilinogen Negative (Negative) 02/25/19 14:10 Ur Leukocyte Esterase Negative (Negative) 02/25/19 14:10 Blood Type A Positive 02/25/19 14:10 Antibody Screen NEGATIVE 02/25/19 14:10
[2019-03-27] MEDS: CYCLOBENZAPRINE HCL 10 MG TAB PO SCH ×2 (08:54→13:08)
[2019-03-27] MEDS: DULOXETINE HCL 30 MG CAP PO SCH (08:55)
[2019-03-27] MEDS: DOCUSATE SODIUM 100 MG CAP PO SCH (08:56)
[2019-03-27] MEDS: GABAPENTIN 400 MG CAP PO SCH ×2 (08:56→13:08)
[2019-03-27] MEDS: ASPIRIN 81 MG ECTAB PO SCH (08:56)
[2019-03-27] MEDS: miSOPROStol 200 MCG TAB PO SCH (08:57)
[2019-03-27] MEDS ORDERED: INSULIN GLARGINE SOLOSTAR 100 UNITS/ML 3 ML PEN SC ONE (09:00)
[2019-03-27] MEDS ORDERED: MULTIVITAMIN TAB PO SCH (09:00)
[2019-03-27] MEDS ORDERED: AMLODIPINE BESYLATE 5 MG TAB PO SCH (09:00)
--- NOTE | 2019-03-27 12:11 | Anesthesiology Progress Note ---
Date of Service March 27, 2019 Anesthesia Post Procedure Vital Signs Vital Signs: Temp Pulse Resp BP Pulse Ox 03/27/19 11:38 36.4 C L 81 16 161/80 H 95 03/27/19 07:32 36.5 C 85 16 145/73 H 95 03/27/19 03:41 36.6 C 90 16 145/75 H 96 03/27/19 00:06 36.7 C 83 16 135/76 93 03/26/19 19:16 36.5 C 85 16 128/78 95 03/26/19 15:07 36.6 C 80 16 147/77 H 95 03/26/19 13:44 73 16 162/76 H 97 03/26/19 12:17 83 16 131/75 100 Pain Intensity Right Knee: Pain Intensity: 5 Notes Mental Status: alert / awake / arousable and participated in evaluation Nausea / Vomiting: adequately controlled Pain: adequately controlled Airway Patency, RR, SpO2: stable & adequate BP & HR: stable & adequate Hydration State: stable & adequate Neuraxial Anesthesia: sensory block resolved
--- NOTE | 2019-03-27 12:33 | Pharmacy Report ---
Pharmacy Glycemic Short Note 2 - Date of Service March 27, 2019 - Glycemic Short BSG Results (Last 24 hours): 03/26/19 03/26/19 03/27/19 17:22 21:41 00:02 Glucose POC Glucose 156 H 169 H 136 H 03/27/19 03/27/19 03/27/19 04:13 05:37 08:14 Glucose 198 H POC Glucose 272 H 93 03/27/19 12:06 Glucose POC Glucose 116 H OUTPATIENT ANTIDIABETIC REGIMEN: * Metformin 1 gm BID * A1c 6.6% on 02/25/19 ASSESSMENT: 03/27 * Patient is POD 1 s/p TKA * He received 25 units of basal + 15 units of bolus insulin yesterday * BSGs spiked to 272 mg/dL overnight but came down with additional correctional insulin overnight * I anticipate the dexamethasone to still be on board for a good part of today, so will tighten Novolog parameters and provide additional basal. Will plan to then loosen insulin doses and resume metformin with dinner today. SCr stable at 0.98 and PO intake is adequate. 03/26 * Mr. Kolb admitted post-op right knee arthroplasty * Pre-op BSG 157, A1c of 6.6% indicates good outpatient control with metformin 1000 mg BID * Patient did receive po dexamethasone, weight based insulin will be initiated close to weight based stress of 2, being slightly conservative due to good previous control, steroid given po and higher BMI insulin naive patient PLAN FOR INPATIENT GLYCEMIC CONTROL: * Resume metformin 1 gm BID w/ dinner * Basal insulin * Lantus 25 units x 1 this AM * Bolus insulin * NovoLog per scale ACHS or Q6hrs while NPO * Goal Range: Low 110 mg/dL - High 140 mg/dL * Correction Factor: 15 mg/dL/unit; loosen to 20 mg/dL/unit starting w/ dinner * Nutritional / Prandial insulin per carb ratio of 1 unit per 5 grams CHO consumed; loosen to 1 unit per 10 grams starting w/ dinner PLAN FOR DISCHARGE: * A1c = 6.6 % on 02/25/19. Goal A1c = < 7 % based on age and comorbidities. A reasonable A1C goal for many non- adults is A1c less than 7 * Recommend to continue metformin on discharge
[2019-03-27] MEDS ORDERED: INSULIN ASPART 100 UNITS/ML 3 ML PEN SC SCH (16:30)
[2019-03-27] MEDS ORDERED: METFORMIN HCL 500 MG TAB PO SCH (17:00)
--- NOTE | 2019-03-27 18:15 | Discharge Summary ---
Date of Service date of discharge: March 27, 2019 date of admission: 03-26-19 Admission HPI Per Admitting Provider Mr Kolb is a 53 year old male who complains of right knee pain, presents for pre-op evaluation prior to a right total knee replacement at [facility]. He presents with pain and stiffness in his right knee. He states that the symptoms have been chronic non-traumatic. The symptoms occur constantly with intermittent worsening. Currently the patient states that the symptoms are moderate-severe. The pain is described as aching, sharp and throbbing. He rates his current pain as 8/10. The symptoms are aggravated by ascending stairs, daily activities, first steps while awake, kneeling, repetitive activities, sleeping in any position, squatting and walking. Edward states that the symptoms are relieved by no specific activity. In addition to knee pain he is also experiencing nighttime awakening, limping, pain, stiffness, tenderness and weakness. Pertinent negatives include chills and fever. Prior pain medications include Ultram and Lidocaine patches. Prior NSAIDs include Voltaren and ibuprofen. He has been treated with a corticosteroid injection on the right side with no relief, he has also tried previous visco supplementation. Principal Diagnosis right knee osteoarthritis Discharge Exam Vital Signs Temp Pulse Resp BP Pulse Ox 03/27/19 14:08 36.4 C L 81 16 161/80 H 95 03/27/19 11:38 36.4 C L 81 16 161/80 H 95 03/27/19 07:32 36.5 C 85 16 145/73 H 95 03/27/19 03:41 36.6 C 90 16 145/75 H 96 03/27/19 00:06 36.7 C 83 16 135/76 93 03/26/19 19:16 36.5 C 85 16 128/78 95 Intake and Output 03/27/19 03/27/19 03/27/19 06:59 14:59 22:59 Intake Total 1240 / 4742.500 160 / 160 Output Total 825 / 3805 125 / 125 Balance 415 / 937.500 35 / 35 Intake: IV 160 / 160 Nss 1000ML 1,000 ml @ 100 mls/ 160 / 160 hr IV .Q10H MARSHA Rx#:[id number] Oral 1240 / 2520 Output: Urine 700 / 3450 Drain Output 125 / 350 125 / 125 Right Knee Hemovac 125 / 350 125 / 125 Other: # Unmeasured Voids 1 Weight 144.923 kg Patient Weight 03/28/19 06:59 Weight 144.923 kg Musculoskeletal right knee: NVDI, calf SNT, negative ector sign. DP palpable, able to wiggle toes/ankle movement without difficulty. Incision clean dry and intact. expected post-operative bruising noted. Discharge Data Allergies Allergy/AdvReac Type Severity Reaction Status Date / Time etodolac AdvReac Intermediate SCREAMING Verified 03/26/19 05:37 HEADACHE Consultations 03/26/19 10:32 Consult Case Management - Discharge Planning Routine Procedures Performed Operation Date: 03/26/19 07:15 Actual Procedures p Right Total Knee Arthroplasty, Cemented(Right) - Crispin Osorio DO Ordered Studies 03/26/19 05:00 US - OR guided needle placemen Routine Hospital Course (1) Tricompartment osteoarthritis of right knee: Postop day 1 status post right TKA. PT/OT protocols. Weightbearing as tolerated. DVT prophylaxis with aspirin twice daily, SCDs, MARGOTH hose. Pain management with oxycodone, Tylenol, Celebrex, IV hydromorphone. He performed well in PT today, will discharge home with HHPT and dressing, will have home health nursing perform dressing change and pull hemovac in the am. Total Time Total Time Spent Total Time Spent (In Minutes): 20 Total Time Includes: Examination of the Patient, Discharge Planning and Medication Reconciliation Discharge Plan Discharge Items Patient Disposition: Home - Self-Care Reason For Visit: Unilateral Primary Osteoarthritis, Right Knee Discharge Diagnosis: Right knee osteoarthritis Activity: Per Instructions section Weightbearing: Right weightbearing Weightbearing Comment: Weightbearing as tolerated with walker Non-emergency contact: Surgeon Call non-emergency contact if: your pain is worsening, your temperature is above 101.5, your wound has increased redness and your wound has increased drainage Follow-up/Referrals: Marcy Chatman M.D. [Primary Care Provider] - Diet: Carb Consistent or DM2 Addtl Attending Provider Instructions: ACTIVITY RECOMMENDATIONS: SELF CARE INSTRUCTIONS AFTER TOTAL KNEE REPLACEMENT A. You may need to continue a physical therapy program after discharge from the hospital. There are several options available to you. Your doctor will assist you in selecting the best one for you. 1. An out-patient facility 2 to 3 times a week for therapy or home therapy. 2. Continue working on all exercises taught to you in the hospital. Your goals should be to increase bending of your knee to 90 degrees and beyond and to fully straighten your knee. B. You may progress at your own pace from walking with a walker or crutches to a cane; then to no assistive devices. C. Make walking a part of your daily routine. Be up as much as comfortable with rest periods throughout the day. Rest with leg elevation is very important. Use the ice wrap frequently for the first 3-4 weeks. D. There are no restrictions on activities. You may ride in a car, shop, participate in sheriff deputy and all social activities. E. Wear the long elastic stockings (MARGOTH hose) 20 hours a day for 2 weeks after surgery. They can be removed several times a day for laundering and for a bath. F. You may shower, no tub baths until cleared by your doctor. SPECIAL CARE INSTRUCTIONS: VERY IMPORTANT TO READ AND REVIEW A. There are a few signs you need to watch for after you are home. Call [facility] if you notice any of the followin. Increased severe knee pain. Some pain is expected especially when you exercise. 2. Increased swelling in your leg or knee; pain or swelling of the calf muscle in either lower leg. 3. Any fluid drainage from the incision. 4. Shortness of breath or chest pain. B. Please call [facility] at if you have any concerns or questions about your operation or recovery. The doctor or his nurse will return your call promptly. C. You must take antibiotics before dental work, bladder, bowel or other surgery. Your doctor will provide you with a permanent care to carry describing this precaution. IMPORTANT: * REMEMBER TO TAKE ASPIRIN, 81 MG, TWICE DAILY FOR 4 WEEKS UNLESS OTHERWISE DIRECTED. THIS IS YOUR BLOOD THINNER. * HIGH RISK PATIENTS MAY BE PRESCRIBED A STRONGER BLOOD THINNER. THIS WILL BE PROVIDED AT DISCHARGE. * CALL IF INCREASED PAIN, REDNESS, DRAINAGE OR FEVER GREATER THAT 101. * WEAR MARGOTH HOSE 20 HOURS PER DAY FOR 2 WEEKS. * DERMABOND Prineo- This is a mesh tape dressing that is covered with glue. It should remain in place until the incision is properly healed, usually 10-14 days. This dressing is designed to naturally slough off. You may trim the excess mesh tape as it peels off. Incision may be briefly wet in a shower. Dry immediately by blotting with a clean, dry towel. Do not bath or swim until instructed by your doctor. Do not scratch, rub, or pick at the dressing. Do not apply any topical ointments or lotions until dressing is completely removed and/or instructed by your doctor. There may be a small piece of suture material at one end of your incision. Do not pull or trim this. If it is bothersome or catching on clothing, you may cover it with a band-aid. . FOLLOW UP VISIT: If appointment is not already scheduled: Please call [facility] to make a follow-up appointment for 2 weeks after your surgery at . Addtl [employer] Provider Instructions: ACTIVITY RECOMMENDATIONS: SELF CARE INSTRUCTIONS AFTER TOTAL KNEE REPLACEMENT A. You may need to continue a physical therapy program after discharge from the hospital. There are several options available to you. Your doctor will assist you in selecting the best one for you. 1. An out-patient facility 2 to 3 times a week for therapy or home therapy. 2. Continue working on all exercises taught to you in the hospital. Your goals should be to increase bending of your knee to 90 degrees and beyond and to fully straighten your knee. B. You may progress at your own pace from walking with a walker or crutches to a cane; then to no assistive devices. C. Make walking a part of your daily routine. Be up as much as comfortable with rest periods throughout the day. Rest with leg elevation is very important. Use the ice wrap frequently for the first 3-4 weeks. D. There are no restrictions on activities. You may ride in a car, shop, participate in sheriff deputy and all social activities. E. Wear the long elastic stockings (MARGOTH hose) 20 hours a day for 2 weeks after surgery. They can be removed several times a day for laundering and for a bath. F. You may shower, no tub baths until cleared by your doctor. SPECIAL CARE INSTRUCTIONS: VERY IMPORTANT TO READ AND REVIEW A. There are a few signs you need to watch for after you are home. Call [facility] if you notice any of the followin. Increased severe knee pain. Some pain is expected especially when you exercise. 2. Increased swelling in your leg or knee; pain or swelling of the calf muscle in either lower leg. 3. Any fluid drainage from the incision. 4. Shortness of breath or chest pain. B. Please call [facility] at if you have any concerns or questions about your operation or recovery. The doctor or his nurse will return your call promptly. C. You must take antibiotics before dental work, bladder, bowel or other surgery. Your doctor will provide you with a permanent care to carry describing this precaution. IMPORTANT: * REMEMBER TO TAKE ASPIRIN, 81 MG, TWICE DAILY FOR 4 WEEKS UNLESS OTHERWISE DIRECTED. THIS IS YOUR BLOOD THINNER. * HIGH RISK PATIENTS MAY BE PRESCRIBED A STRONGER BLOOD THINNER. THIS WILL BE PROVIDED AT DISCHARGE. * CALL IF INCREASED PAIN, REDNESS, DRAINAGE OR FEVER GREATER THAT 101. * WEAR MARGOTH HOSE 20 HOURS PER DAY FOR 2 WEEKS. * DERMABOND Prineo- This is a mesh tape dressing that is covered with glue. It should remain in place until the incision is properly healed, usually 10-14 days. This dressing is designed to naturally slough off. You may trim the excess mesh tape as it peels off. Incision may be briefly wet in a shower. Dry immediately by blotting with a clean, dry towel. Do not bath or swim until instructed by your doctor. Do not scratch, rub, or pick at the dressing. Do not apply any topical ointments or lotions until dressing is completely removed and/or instructed by your doctor. There may be a small piece of suture material at one end of your incision. Do not pull or trim this. If it is bothersome or catching on clothing, you may cover it with a band-aid. . FOLLOW UP VISIT: If appointment is not already scheduled: Please call [facility] to make a follow-up appointment for 2 weeks after your surgery at . Stand-Alone Forms: My [facility] [employer] Opioid Pain Management Medications and DC Order Prescriptions: New sennosides [Senokot] 8.6 mg Tablet 17.2 mg PO HS Qty: 30 RF: 0 aspirin [Ecotrin Low Strength] 81 mg Tablet,Delayed Release (Dr/Ec) 81 mg PO BID 30 Days Qty: 60 RF: 0 acetaminophen [Tylenol Extra Strength] 500 mg Tablet 1,000 mg PO Q8 14 Days Qty: 84 RF: 0 oxycodone 5 mg Tablet 5 - 10 mg PO Q6H PRN (Reason: pain) Qty: 30 RF: 0 cefadroxil 500 mg capsule 500 mg PO BID Qty: 28 RF: 1 Continued cyclobenzaprine 10 mg Tablet 10 mg PO TID RF: 0 atorvastatin 20 mg Tablet 20 mg PO HS RF: 0 trazodone 50 mg Tablet 50 mg PO HS RF: 0 gabapentin 400 mg Capsule 800 mg PO TID RF: 0 hydroxyzine HCl 50 mg Tablet 50 mg PO TID PRN (Reason: Anxiety) RF: 0 amlodipine 10 mg Tablet 10 mg PO QAM RF: 0 metformin 1,000 mg Tablet 1,000 mg PO BID RF: 0 ranitidine HCl 300 mg Capsule 300 mg PO HS RF: 0 lisinopril 10 mg Tablet 10 mg PO DAILY RF: 0 misoprostol 200 mcg Tablet 400 mcg PO BID RF: 0 lidocaine 5 % Adhesive Patch,Medicated 1 patch TOPICAL DAILY RF: 0 lansoprazole 15 mg Capsule,Delayed Release(Dr/Ec) 15 mg PO BID RF: 0 duloxetine 30 mg Capsule,Delayed Release(Dr/Ec) 60 mg PO BID RF: 0 guaifenesin [Mucinex] 600 mg Tablet Extended Release 12hr 600 mg PO TID RF: 0 Discontinued tramadol 100 mg Tablet Extended Release 24 Hr 100 mg PO QAM RF: 0 tramadol 200 mg Tablet Extended Release 24 Hr 200 mg PO QAM RF: 0 diclofenac sodium 50 mg Tablet,Delayed Release (Dr/Ec) 50 mg PO BID RF: 0 Discharge Orders: Discharge Order (Routine); Ordered 03/27/19 Ordered By: Edwin De La Cruz/Other Patient Handouts: Diabetes Type 2 Coping, Diabetes Meal Planning Admission Data Admit Date/Time: 03/26/19 09:25 Attending Provider: Crispin Osorio Admit Provider: Crisipn Osorio Primary Care Provider: Marcy Chatman. Other Interventions: Discharge Summary Assessment (RN) Last Done: 03/27/19 14:08 DC Date/Time DO NOT enter until pt leaves facility: 03/27/19 14:48
[2019-03-27] MEDS ORDERED: CeleBREX 200 MG CAP PO SCH (21:00)
== END 2019-03-27 14:48 | disposition home or self-care (01) | DRG 470 ==
LOC: ASU 05:07 → 3E 09:25

== ENCOUNTER 2020-03-04 10:20 | Inpatient (IN) ==
--- NOTE | 2020-02-07 12:54 | PAT Medication Instructions ---
Medication Instructions Date of Service February 07, 2020 Home Medications amlodipine 10 mg PO QAM atorvastatin 20 mg PO HS cyclobenzaprine 10 mg PO TID duloxetine 60 mg PO BID gabapentin 800 mg PO TID guaifenesin [Mucinex] 400 mg PO BID hydroxyzine HCl 50 mg PO TID lansoprazole 15 mg PO BID lidocaine 1 patch TOPICAL QAM lisinopril 10 mg PO QAM metformin 1,000 mg PO BID misoprostol 400 mcg PO BID trazodone 50 mg PO HS diclofenac sodium 2 g TOPICAL TID PRN diclofenac sodium 50 mg PO BID ferrous sulfate [iron] 325 mg PO DAILY fluticasone propionate 2 spray INTRANASAL HS magnesium oxide 420 mg PO HS ropinirole 1 mg PO HS tramadol 100 mg PO PM tramadol 200 mg PO HS Blood Sugar Support 1 cap PO QAM aspirin 81 mg PO QAM [shasha extract] 550 mg PO QAM milk thistle 1,000 mg PO QAM omega 1-lli-fuo-fish oil [Belding-3] 2 cap PO QAM Continue as directed lidocaine 1 patch TOPICAL QAM (do not place near surgical site) ASK your surgeon for instructions diclofenac sodium 50 mg PO BID STOP taking 2 weeks before surgery If surgery is within 2 weeks, stop taking as soon as possible. Blood Sugar Support 1 cap PO QAM [shasha extract] 550 mg PO QAM milk thistle 1,000 mg PO QAM omega 2-ftp-ijv-fish oil [Belding-3] 2 cap PO QAM STOP taking 24 hours before surgery diclofenac sodium 2 g TOPICAL TID PRN ropinirole 1 mg PO HS DO NOT take the morning of surgery cyclobenzaprine 10 mg PO TID guaifenesin [Mucinex] 400 mg PO BID hydroxyzine HCl 50 mg PO TID lisinopril 10 mg PO QAM metformin 1,000 mg PO BID misoprostol 400 mcg PO BID ferrous sulfate [iron] 325 mg PO DAILY Take morning of surgery With a small sip of water, OTHERWISE NOTHING TO EAT OR DRINK AFTER MIDNIGHT: amlodipine 10 mg PO QAM duloxetine 60 mg PO BID gabapentin 800 mg PO TID lansoprazole 15 mg PO BID aspirin 81 mg PO QAM Take evening before surgery atorvastatin 20 mg PO HS cyclobenzaprine 10 mg PO TID duloxetine 60 mg PO BID gabapentin 800 mg PO TID guaifenesin [Mucinex] 400 mg PO BID hydroxyzine HCl 50 mg PO TID lansoprazole 15 mg PO BID metformin 1,000 mg PO BID misoprostol 400 mcg PO BID trazodone 50 mg PO HS fluticasone propionate 2 spray INTRANASAL HS magnesium oxide 420 mg PO HS tramadol 100 mg PO PM tramadol 200 mg PO HS Other Notes If you have any questions please call us at [phone] or [phone] or [phone] or [phone]
--- NOTE | 2020-02-11 14:34 | Anesthesiology Consultation ---
Date of Service February 11, 2020 Assessment & Plan (1) Encounter for pre-operative examination: COVID Status: As of 02/10 assessment, patient denies travel to endemic area, known exposure/sick contacts, or symptoms of COVID19. Patient instructed that they and their household members must follow strict social distancing guidelines, wear a mask in public and avoid travel for 14 days prior to surgery. Preoperative COVID19 testing to be completed prior to surgery per surgeon's arrangements (02/27 per pt). Patient made aware to self-isolate as much as possible between COVID testing and surgery. PCP Clearance 02/12/20 = "[place] is medically stable to proceed with knee replacement surgery... Although patient lacks cardiovascular risk, he does have obesity, obstructive sleep apnea and history of tobacco use which can impact his perioperative risk. His ASA class would be 3 based on his obesity with BMI over 40. His sleep apnea is well controlled with current CPAP settings." Chart Review Chart Review: Acceptable Risk for Surgery and Patient seen in Pre Admission Testing Teaching & Discussion Instructed NPO after midnight before surgery, except medications with 15 cc of water. Medication instructions provided according to the PAT guidelines. History Surgery Operation Date: 03/04/20 15:00 Proposed Procedures p Left Total Knee Arthroplasty - Crispin Osorio DO Height/Weight Height: 6 ft 1 in Weight: 147.8 kg Allergies Allergy/AdvReac Type Severity Reaction Status Date / Time etodolac AdvReac Intermediate SCREAMING Verified 01/01/20 11:29 HEADACHE Medications Home Medications Medication Instructions Recorded Confirmed Last Taken amlodipine 10 mg PO QAM 02/22/19 02/07/20 12/31/19 09:00 atorvastatin 20 mg PO HS 02/22/19 02/07/20 12/31/19 18:00 cyclobenzaprine 10 mg PO TID 02/22/19 02/07/20 01/01/20 09:00 duloxetine 60 mg PO BID 02/22/19 02/07/20 12/31/19 19:00 gabapentin 800 mg PO TID 02/22/19 02/07/20 12/31/19 23:00 guaifenesin [Mucinex] 400 mg PO BID 02/22/19 02/07/20 12/31/19 23:00 hydroxyzine HCl 50 mg PO TID 02/22/19 02/07/20 12/31/19 23:00 lansoprazole 15 mg PO BID 02/22/19 02/07/20 03/25/19 18:00 lidocaine 1 patch TOPICAL QA 02/22/19 02/07/20 12/31/19 09:00 lisinopril 10 mg PO QAM 02/22/19 02/07/20 12/31/19 09:00 metformin 1,000 mg PO BID 02/22/19 02/07/20 12/31/19 19:00 misoprostol 400 mcg PO BID 02/22/19 02/07/20 12/31/19 23:00 trazodone 50 mg PO 02/22/19 02/07/20 12/31/19 23:00 diclofenac sodium 2 g TOPICAL TID PRN 12/19/19 02/07/20 12/31/19 23:00 diclofenac sodium 50 mg PO BID 12/19/19 02/07/20 12/31/19 23:00 ferrous sulfate [iron] 325 mg PO DAILY 12/19/19 02/07/20 01/01/20 09:00 fluticasone propionate 2 spray INTRANASAL 12/19/19 02/07/20 12/31/19 23:00 magnesium oxide 420 mg PO 12/19/19 02/07/20 12/31/19 23:00 ropinirole 1 mg PO 12/19/19 02/07/20 12/31/19 23:00 tramadol 100 mg PO PM 12/19/19 02/07/20 12/31/19 23:00 tramadol 200 mg PO 12/19/19 02/07/20 12/31/19 23:00 Blood Sugar Support 1 cap PO QAM 02/07/20 02/07/20 Unknown aspirin 81 mg PO QAM 02/07/20 02/07/20 Unknown shasha (Zingiber officinalis) 550 mg PO QAM 02/07/20 02/07/20 Unknown [shasha extract] milk thistle 1,000 mg PO QAM 02/07/20 02/07/20 Unknown omega 3-kuo-wbm-fish oil [Welches-3] 2 cap PO QAM 02/07/20 02/07/20 Unknown Past Medical History Medical History Anxiety Bulging of intervertebral disc Degenerative disc disease Depression Diverticular disease DM type 2 (diabetes mellitus, type 2) NIDDM GERD (gastroesophageal reflux disease) History of paranoid disorder Hyperlipidemia Hypertension Morbid obesity Neuropathy legs and arms Osteoarthritis Restless leg syndrome Scoliosis Sleep apnea CPAP Spinal stenosis Urinary incontinence Exercise / Class Metabolic Activity III < 4 Walking/Shop/Light housework (Denies CP or SOB with ambulation, uses arm crutches for ambulation due to lumbar radiculopathy and knee pain) Past Family History Family History Unknown High cholesterol Hypertension Uncle Diabetes Uncle Diabetes Aunt Diabetes Aunt Diabetes Grandmother (Maternal) Diabetes Other No family history of adverse response to anesthesia Past Surgical History Surgical History History of esophagogastroduodenoscopy (EGD) History of right knee joint replacement 2018 Hx of carpal tunnel repair BL Hx of colonoscopy Hx of neck surgery "Deep cyst removed" Past Anesthesia History No Hx of Anesthesia Complications and No Family Hx of Anesthesia Complications History of PONV No Hx of PONV and No Hx of Motion Sickness Social History Smoking Status: Former smoker Smoking cigarettes per day: 1PPD Smoking End Date: quit 2018 Hx Alcohol Use: No Hx Substance Use: No substance use type: does not use Review of Systems Pt denies any recent chest pain, shortness of breath, palpitations, cough, fever, URI, or uncontrolled acid reflux. Physical Exam Vital Signs BP: 123/77 P: 86bpm SPO2: 95% RA T: 98.2 F R: 16 Constitutional + morbidly obese ENMT Mouth: no dental restorations, no chipped teeth and no loose teeth Thyromental Distance: > or= 3.5 Finger Breadths Mallampati Class: I Neck + thick neck; neck extension not limited Respiratory normal respiratory effort Auscultation: lungs clear to auscultation bilaterally Cardiovascular Rate/Rhythm: regular rate Heart Sounds: no murmur Vessels: no carotid bruit Testing Laboratory Results 02/11/20 14:49 02/11/20 14:49 PT 10.6 Seconds (9.0-12.0) 02/11/20 14:49 INR 1.0 (0.9-1.1) 02/11/20 14:49 APTT 28.1 Seconds (21.0-31.0) 02/11/20 14:49 Hemoglobin A1c 7.1 % (4.5-5.6) H 02/11/20 14:49 Urine Color Yellow 02/11/20 14:49 Urine Appearance Clear (Clear) 02/11/20 14:49 Urine pH 6.5 (4.5-7.5) 02/11/20 14:49 Ur Specific Burton 1.007 (1.000-1.030) 02/11/20 14:49 Urine Protein Negative (Negative) 02/11/20 14:49 Urine Glucose (UA) Negative (Negative) 02/11/20 14:49 Urine Ketones Negative (Negative) 02/11/20 14:49 Urine Nitrite Negative (Negative) 02/11/20 14:49 Ur Leukocyte Esterase Negative (Negative) 02/11/20 14:49 Blood Type A Positive 02/11/20 14:49 Antibody Screen NEGATIVE 02/11/20 14:49 Electrocardiogram Date: 02/11/20 Findings: + NSR @ (79bpm) Nonspecific ST and T wave abnormality. Compared with EKG of 02/25/2019, no significant change was found. Chest X-Ray Date: 02/11/20 Findings: + NAD
--- NOTE | 2020-02-11 15:49 | XRay Report ---
XR chest Pre-admission PA/Lat CLINICAL HISTORY: pat preoperative evaluation COMPARISON STUDY: 02/25/2019 FINDINGS: The bones soft tissues and hemidiaphragms are normal. The cardiomediastinal silhouette is n ormal. The lungs are clear. The pulmonary vasculature is normal. IMPRESSION: Negative chest. ACT 112: Negative or not required by law. The above report was generated using voice recognition software. It may contain grammatical, syntax or spelling errors. Electronically signed by: Asher Serna M.D. 02/11/2020 3:48 PM
[2020-02-11 16:08] LABS: Basophils # (auto) 0.03 K/uL (0-0.2); Basophils % (auto) 0.3 %; Eosinophils # (auto) 0.08 K/uL (0-0.5); Eosinophils % (auto) 0.8 %; Hematocrit (blood only) 40.4 % (42-52); Hemoglobin 13.7 g/dL (14.0-18.0); Immature Granulocytes # (auto) 0.02 K/uL (0.00-0.02); Immature Granulocytes % (auto) 0.2 %; Lymphocytes # (auto) 1.28 K/uL (1.2-3.4); Lymphocytes % (auto) 13.5 %; Mean Corpuscular Hemoglobin 29.3 pg (25-34); Mean Corpuscular Hgb Conc 33.9 g/dL (32-36); Mean Corpuscular Volume 86.3 fL (80-100); Monocytes # (auto) 0.47 K/uL (0.11-0.59); Monocytes % (auto) 4.9 %; Neutrophils # (auto) 7.63 K/uL (1.4-6.5); Neutrophils % (auto) 80.3 %; Platelet Count 294 K/uL (130-400); RDW Coefficient of Variation 13.7 % (11.5-14.5); RDW Standard Deviation 42.7 fL (36.4-46.3); Red Blood Count 4.68 M/uL (4.7-6.1); White Blood Count 9.51 K/uL (4.8-10.8)
[2020-02-11 16:09] LABS: Appearance Urine Clear (Clear); Bilirubin Urine Negative (Negative); Blood Urine Negative (Negative); Color Urine Yellow; Glucose Urine UA Negative (Negative); Ketones Urine Negative (Negative); Leukocyte Esterase Urine Negative (Negative); Nitrite Urine Negative (Negative); Protein Urine Negative (Negative); Specific Gravity Urine 1.007 (1.000-1.030); Urobilinogen Urine Negative (Negative); pH Urine 6.5 (4.5-7.5)
[2020-02-11 16:15] LABS: Albumin Level 4.2 gm/dl (3.4-5.0); BUN Creatinine Ratio 15.2 (10-20); Calcium 9.2 mg/dl (8.5-10.1); Est GFR (African American) 96.3; Est GFR (Non-African American) 83.1; Potassium 4.1 mmol/L (3.5-5.1)
[2020-02-11 16:17] LABS: Partial Thromboplastin Time 28.1 Seconds (21.0-31.0); Prothrombin Time 10.6 Seconds (9.0-12.0)
[2020-02-12 05:37] LABS: Estimated Average Glucose 157 mg/dl; Hemoglobin A1C 7.1 % (4.5-5.6)
--- NOTE | 2020-02-13 08:43 | Electrocardiogram Report ---
Test Reason : Blood Pressure : / mmHG Vent. Rate : 079 BPM Atrial Rate : 079 BPM P-R Int : 152 ms QRS Dur : 096 ms QT Int : 392 ms P-R-T Axes : 060 081 061 degrees QTc Int : 449 ms Normal sinus rhythm Nonspecific ST and T wave abnormality Abnormal ECG When compared with ECG of 25-FEB-2019 14:15, No significant change was found Confirmed by Brown Romeo ([id number]) on 02/13/2020 8:43:25 AM Referred By: Crispin Osorio Confirmed By:Brown Romeo
--- NOTE | 2020-02-17 12:46 | History & Physical Report ---
Date of Service February 17, 2020 procedure: Left Total Knee Arthroplasty date of surgery: 03-04-20 Assessment & Plan (1) Arthritis of knee, left: Further care discussed with patient and at this point in time has failed conservative measures and would like to proceed with a left total knee repl acement. Plan on discharge will be home with home health physical therapy. DVT prophalaxis with TEDs, SCDs and will also place on aspirin 81 mg p.o b.i.d. for a month postop. Patient will have follow up appointment in our office two weeks post op for staple/suture removal and re-evaluation. Patient otherwise has no other questions or concerns. History of Present Illness Chief Complaint: left knee pain Primary Care Provider: Marcy Chatman Adair is a 54 year old male who complains of left knee pain, presents for pre- op evaluation prior to a left total knee replacement by dr Osorio at [facility]. He complains of pain, crepitus, decreased range of motion, instability and stiffness in the left knee. He states that the symptoms have been chronic and non-traumatic and the symptoms occur constantly with intermittent worsening. Currently the patient states that the symptoms are moderate-severe. The pain is described as aching, sharp and throbbing. The symptoms occur continuously. The symptoms are aggravated by ascending stairs, daily activities, first steps while awake walking. Prior NSAIDs include Aleve and IBU. He has been treated with previous cortisone and visco injections in the past without much relief. Allergi es Allergy/AdvReac Type Severity Reaction Status Date / Time etodolac AdvReac Intermediate SCREAMING Verified 01/01/20 11:29 HEADACHE Home Medications Home Medications Medication Instructions Recorded Confirmed Type amlodipine 10 mg PO QAM 02/22/19 02/07/20 History atorvastatin 20 mg PO HS 02/22/19 02/07/20 History cyclobenzaprine 10 mg PO TID 02/22/19 02/07/20 History duloxetine 60 mg PO BID 02/22/19 02/07/20 History gabapentin 800 mg PO TID 02/22/19 02/07/20 History guaifenesin [Mucinex] 400 mg PO BID 02/22/19 02/07/20 History hydroxyzine HCl 50 mg PO TID 02/22/19 02/07/20 History lansoprazole 15 mg PO BID 02/22/19 02/07/20 History lidocaine 1 patch TOPICAL QAM 02/22/19 02/07/20 History lisinopril 10 mg PO QAM 02/22/19 02/07/20 History metformin 1,000 mg PO BID 02/22/19 02/07/20 History misoprostol 400 mcg PO BID 02/22/19 02/07/20 History trazodone 50 mg PO HS 02/22/19 02/07/20 History diclofenac sodium 2 g TOPICAL TID PRN 12/19/19 02/07/20 History diclofenac sodium 50 mg PO BID 12/19/19 02/07/20 History ferrous sulfate [iron] 325 mg PO DAILY 12/19/19 02/07/20 History fluticasone propionate 2 spray INTRANASAL HS 12/19/19 02/07/20 History magnesium oxide 420 mg PO HS 12/19/19 02/07/20 History ropinirole 1 mg PO HS 12/19/19 02/07/20 History tramadol 100 mg PO PM 12/19/19 02/07/20 History tramadol 200 mg PO HS 12/19/19 02/07/20 History Blood Sugar Support 1 cap PO QAM 02/07/20 02/07/20 History aspirin 81 mg PO QAM 02/07/20 02/07/20 History shasha (Zingiber officinalis) 550 mg PO QAM 02/07/20 02/07/20 History [shasha extract] milk thistle 1,000 mg PO QAM 02/07/20 02/07/20 History omega 3-[id number]-[id number]-fish oil [Willard-3] 2 cap PO QAM 02/07/20 02/07/20 History Past Med/Surg History Medical History Anxiety Bulging of intervertebral disc Degenerative disc disease Depression Diverticular disease DM type 2 (diabetes mellitus, type 2) NIDDM GERD (gastroesophageal reflux disease) History of paranoid disorder Hyperlipidemia Hypertension Morbid obesity Neuropathy legs and arms Osteoarthritis Restless leg syndrome Scoliosis Sleep apnea CPAP Spinal stenosis Urinary incontinence Surgical History History of esophagogastroduodenoscopy (EGD) History of right knee joint replacement 2019 Hx of carpal tunnel repair BL Hx of colonoscopy Hx of neck surgery "Deep cyst removed" Family History Unknown High cholesterol Hypertension Uncle Diabetes Uncle Diabetes Aunt Diabetes Aunt Diabetes Grandmother (Maternal) Diabetes Other No family history of adverse response to anesthesia Social History Smoking Status: Former smoker Cigarettes Per Day: 1PPD; Smoking End Date: quit 2018; Second Hand Exposure: Yes; Hx Alcohol Use: No Hx Substance Use: No Preferred Language: [place] Communication Ability: Effective Spanish Lecturer Required: No Beliefs That Will Affect Care: None Current Living Situation: Significant Other Current Living Situation Comment: Lives with Patsy-girlfriend Feels Safe at Home: Yes Safety Concerns: Feels Safe At This Time Review of Systems Review of Systems: All systems reviewed & are unremarkable except as noted in HPI & below Constitutional: no fever, no chills and no sweats Respiratory: no cough and no dyspnea Cardiovascular: no chest pain, no dyspnea and no orthopnea Gastrointestinal: no abdominal pain, no nausea and no vomiting Musculoskeletal: as per Subjective / HPI Physical Exam Physical Exam: Ht: 6ft 1in Wt: 147.8kg Constitutional: WD/WN, vitals as above no acute distress Respiratory: normal respiratory effort, lungs clear to auscultation no respiratory distress, no labored breathing and does not use accessory muscles Cardiovascular: RRR, no murmur, no edema Gastrointestinal (Abdomen): normal bowel sounds, soft, nontender, no hepatosplenomegaly Musculoskeletal: Knee: + knee abnormal to inspection (LEFT KNEE- ), + effusion (+1 effusion), + limited ROM of knee (ROM 0/3/110), + knee ROM with crepitation, + joint line tenderness (medial joint line) and + Frankie's sign positive; no deformity, no skin erythema, no ecchymosis, no valgus laxity, no varus laxity, anterior drawer test negative, Gloria's sign negative and pivot shift test negative Results & Data Results & Data ([facility]) Laboratory Results Laboratory Results WBC 9.51 K/uL (4.8-10.8) 02/11/20 14:49 RBC 4.68 M/uL (4.7-6.1) L 02/11/20 14:49 Hgb 13.7 g/dL (14.0-18.0) L 02/11/20 14:49 Hct 40.4 % (42-52) L 02/11/20 14:49 MCV 86.3 fL (80-100) 02/11/20 14:49 MCH 29.3 pg (25-34) 02/11/20 14:49 MCHC 33.9 g/dL (32-36) 02/11/20 14:49 RDW Std Deviation 42.7 fL (36.4-46.3) 02/11/20 14:49 RDW Coeff of Sil 13.7 % (11.5-14.5) 02/11/20 14:49 Plt Count 294 K/uL (130-400) 02/11/20 14:49 MPV 9.0 fL (7.4-10.4) 02/11/20 14:49 Immature Gran % (Auto) 0.2 % 02/11/20 14:49 Neut % (Auto) 80.3 % 02/11/20 14:49 Lymph % (Auto) 13.5 % 02/11/20 14:49 [place] % (Auto) 4.9 % 02/11/20 14:49 Eos % (Auto) 0.8 % 02/11/20 14:49 Baso % (Auto) 0.3 % 02/11/20 14:49 Neut # (Auto) 7.63 K/uL (1.4-6.5) H 02/11/20 14:49 Lymph # (Auto) 1.28 K/uL (1.2-3.4) 02/11/20 14:49 [place] # (Auto) 0.47 K/uL (0.11-0.59) 02/11/20 14:49 Eos # (Auto) 0.08 K/uL (0-0.5) 02/11/20 14:49 Baso # (Auto) 0.03 K/uL (0-0.2) 02/11/20 14:49 Immature Gran # (Auto) 0.02 K/uL (0.00-0.02) 02/11/20 14:49 PT 10.6 Seconds (9.0-12.0) 02/11/20 14:49 INR 1.0 (0.9-1.1) 02/11/20 14:49 APTT 28.1 Seconds (21.0-31.0) 02/11/20 14:49 PTT Ratio 1.0 02/11/20 14:49 Sodium 140 mmol/L (136-145) 02/11/20 14:49 Potassium 4.1 mmol/L (3.5-5.1) 02/11/20 14:49 Chloride 106 mmol/L (98-107) 02/11/20 14:49 Carbon Dioxide 27 mmol/L (21-32) 02/11/20 14:49 Anion Gap 7.0 (3-11) 02/11/20 14:49 BUN 16 mg/dl (7-18) 02/11/20 14:49 Creatinine 1.03 mg/dl (0.6-1.4) 02/11/20 14:49 Est Cr Clr Drug Dosing 127.0 ml/min 02/11/20 14:49 Est GFR ( Amer) 96.3 02/11/20 14:49 Est GFR (Non-Af Amer) 83.1 02/11/20 14:49 BUN/Creatinine Ratio 15.2 (10-20) 02/11/20 14:49 Glucose 105 mg/dl (70-99) H 02/11/20 14:49 Estimat Average Glucose 157 mg/dl 02/11/20 14:49 Hemoglobin A1c 7.1 % (4.5-5.6) H 02/11/20 14:49 Calcium 9.2 mg/dl (8.5-10.1) 02/11/20 14:49 Albumin 4.2 gm/dl (3.4-5.0) 02/11/20 14:49 Urine Color Yellow 02/11/20 14:49 Urine Appearance Clear (Clear) 02/11/20 14:49 Urine pH 6.5 (4.5-7.5) 02/11/20 14:49 Ur Specific [place] 1.007 (1.000-1.030) 02/11/20 14:49 Urine Protein Negative (Negative) 02/11/20 14:49 Urine Glucose (UA) Negative (Negative) 02/11/20 14:49 Urine Ketones Negative (Negative) 02/11/20 14:49 Urine Blood Negative (Negative) 02/11/20 14:49 Urine Nitrite Negative (Negative) 02/11/20 14:49 Urine Bilirubin Negative (Negative) 02/11/20 14:49 Urine Urobilinogen Negative (Negative) 02/11/20 14:49 Ur Leukocyte Esterase Negative (Negative) 02/11/20 14:49 Blood Type A Positive 02/11/20 14:49 Antibody Screen NEGATIVE 02/11/20 14:49 Diagnostic Findings Left Knee X-ray: left knee series confirm advanced degenerative changes to the left knee, greatest medial compartments and patellofemoral joint, showing joint space narrowing, osteophyte formation and subchondral sclerosis. no acute bony pathology noted.
[~2020-03-04 10:20] MED LIST changes: +ACETAMINOPHEN 500 MG TAB PO SCH; -AMLO-114 PO; -ATOR-22 PO; +BUPIVACAINE 0.5 % 5 MG/1 ML PF 10ML VIAL ONE; +CEFAZOLIN 3000MG 72.5 ML IV SCH; -CETI10TA84 PO; -CYCL10TA6 PO; -CYM/30 PO; +CeleBREX 200 MG CAP PO SCH; -DICL50TA3 PO; +FAMOTIDINE 20 MG TAB PO SCH; -GABA800T PO; +GABAPENTIN 900 MG DOSE PO SCH; -LISI-461 PO; +LR 500ML BOLUS, THEN 15ML/HR IV SCH; +METOCLOPRAMIDE HCL 10 MG TABLET PO SCH; -MISO200T PO; +ROPIVACAINE 0.5% 5 MG/ML 30 ML VIAL ONE; +ROPIVACAINE 0.5% HCL/PF 150 MG, BUPIVACAINE 0.5% MPF 30 ML, EPINEPHrine 30MG/30ML (OR U... INFIL SCH; -TRAM1CAP; +TRANEXAMIC ACID 1,000 MG **IV Intra-op IV SCH; +TRANEXAMIC ACID 1,000 MG **IV Pre-op IV SCH; -TRAZ50TA35 PO; +dexAMETHasone 4 MG TAB PO SCH
[2020-03-04] MEDS ORDERED: ONDANSETRON INJ 2 MG/ML 2 ML VIAL ONE (10:47)
[2020-03-04] MEDS ORDERED: PROPOFOL IV EMULSION 10 MG/ML 20 ML VIAL IV ONE ×3 (10:47→14:43)
[2020-03-04] MEDS ORDERED: LIDOCAINE HCL 2% 2 ML VIAL/AMP(20MG/ML) INFIL ONE (10:47)
[2020-03-04] MEDS ORDERED: MIDAZOLAM HCL 1 MG/ML 2ML VIAL ONE (10:48)
--- NOTE | 2020-03-04 11:19 | History & Physical Bridge Note ---
Date of Service March 04, 2020 History & Physical Bridge Note I have examined the patient, reviewed the History & Physical and in the interval since the performance of the History & Physical I have noted the following changes of clinical significance: no changes noted
[2020-03-04] MEDS ORDERED: fentaNYL citrate 100 MCG/2 ML VIAL ONE (12:01)
[2020-03-04] MEDS ORDERED: ORTHO JOINT ANESTHETIC ONE (12:06)
[2020-03-04] MEDS ORDERED: BACITRACIN INJ 50,000 UNIT VIAL ONE (12:06)
[2020-03-04] MEDS ORDERED: ePHEDrine sulfate 50 MG/ML AMP IV PRN (12:56)
[2020-03-04] MEDS ORDERED: ONDANSETRON INJ 2 MG/ML 2 ML VIAL IV PRN ×2 (12:56→17:44)
[2020-03-04] MEDS ORDERED: ATROPINE SULFATE 0.1 MG/ML 10ML SYR IV PRN (12:56)
[2020-03-04] MEDS ORDERED: HYDROmorphone INJ 1 MG/ML SYRINGE IV PRN ×2 (12:56→17:44)
--- NOTE | 2020-03-04 14:22 | Operative Report ---
Post Operative Report Pre & Post Diagnosis Operation Date: 03/04/20 12:20 Pre-Op Diagnosis: Unilateral Primary Osteoarthritis, Left Knee Post-Op Diagnosis: Unilateral Primary Osteoarthritis, Left Knee I identified the patient and participated in the time-out.: Yes Procedure Operation Date: 03/04/20 12:20 Actual Procedures p Left Total Knee Arthroplasty utilizing [employer] [place] bend 2 patient matched total knee arthroplasty size 8 femur 6 tibia 9 poly-32 oval patella- Crispin Osorio DO Surgeon Crispin Osorio DO Customer Experience Specialist KEITH Baugh Estimated Blood Loss 10 Findings Consistent with Post-Op Diagnosis Patient presents with severe end-stage tricompartmental degenerative joint disease of the left knee with varus alignment subchondral cystic changes marginal osteophytes eburnated [id number] with moderate to large effusion 10 degree flexion contracture Specimens Bone and cartilage Drains Medium bore Hemovac Anesthesia Type MAC Spinal Regional Complications none Disposition Accompanied Patient To Recovery: No Disposition: Recovery Room Indications Patient presents for left total knee arthroplasty failed attempted conservative management clinic physical therapy anti-inflammatories relative rest corticosteroid injection Visco supplementation activity modification the above intraoperative findings no time surgery Description of Procedure After proper prepping and draping of the left lower extremity anterior midline incision was made over the region of the extensor extensor mechanism after meticulous hemostasis was obtained and maintained in subcutaneous tissues a medial parapatellar incision was made The patella was subluxed lateralward the medial lateral gutter were cleaned from any hypertrophic synovitis and scar tissue of the distal femoral block was placed and the distal femoral osteotomy cut was made subsequently the chamfers anterior and posterior osteotomy cuts were made utilizing the 4-in-1 block the tibia was subsequently subluxed anteriorward medial and ateral meniscal remnants were excised in their entirety remnants of the anterior and posterior cruciate ligaments were excised in their entirety excellent exposure of the proximal tibia was obtained the tibial osteotomy guide was placed on the proximal tibial osteotomy cut was made once again the knee was irrigated with copious amounts of sterile saline solution the patella was subsequently everted lateralward thickened scar tissue around the patella was removed the patella was subsequently cut utilizing a freehand technique and was drilled prepared for final preparation and placement of patella socially flexion-extension gaps were checked and the equal and symmetric trials were placed to the appropriate femoral and tibial trials with poly-spacer being placed for equal flexion and extension gaps and full range of motion including extension to 0 and flexion to 140 the trial components after having been taken to recovery range of motion was subsequently removed meticulous hemostasis was obtained and maintained subsequently a knee block injection of joint cocktail including ropivacaine 0.5% 150 mg. Bupivacaine 0.5% epinephrine 1-200,030 mL's toradol 30 mg dexamethasone 4 mg ketamine 10 mg clonidine 100 micrograms normal saline solution 30 mg was infiltrated into the soft tissues of the posterior knee medial lateral gutters and periosteal synovium special attention was paid to protect neurovascular structures at all times subsequently trial components having been removed the knee was irrigated with sterile saline solution. debris was removed the proximal tibia was subsequently prepared and was made ready for the placement of the tibial component tibial component was also cemented and tamped into position the femoral component was subsequently placed and cemented in the position the patellar component was subsequently cemented in position because hemostasis once again obtained and maintained wound having been thoroughly irrigated with debridement and debridement lavage was performed as well as a medial parapatellar incision closed with #1 Vicryl in in terrupted fashion subcutaneous was closed with #2 Vicryl skin was closed with skin clips. PA-C was necessary for prepping and drapping as well as wound closure of deep fascia Sub cutaneous tissue and skin and was necessary for the case. A sterile compressive dressing was placed patient was taken to recovery in stable condition of report dictated by Devon I attest to the content of the Intraoperative Record and any orders documented therein. Any exceptions are noted below. I attest to the content of the Intraoperative Record and any orders documented therein. Any exceptions are noted below.
--- NOTE | 2020-03-04 15:42 | XRay Report ---
XR knee LT 1 or 2V routine HISTORY: 54 years-old Male Surgical Post Op left knee total joint arthroplasty COMPARISON: None TECHNIQUE: 2 views of the left knee FINDINGS: Left knee total joint arthroplasty and patella resurfacing. Surgical drainage catheter. Expected post surgical soft tissue swelling and deep tissue air. Satisfactory alignment without acute fracture or r etained foreign body. IMPRESSION: Left knee total joint arthroplasty and patella resurfacing with expected postoperative ch anges. ACT 112: Negative or not required by law. The above report was generated using voice recognition software. It may contain grammatical, syntax o r spelling errors. Electronically signed by: Gurpreet Loyola M.D. 03/04/2020 3:40 PM
--- NOTE | 2020-03-04 17:16 | Anesthesiology Progress Note ---
Date of Service March 04, 2020 Anesthesia Post Procedure Vital Signs Vital Signs: Temp Pulse Pulse Resp BP Pulse Ox 03/04/20 17:15 86 21 148/73 H 99 03/04/20 17:05 78 24 148/70 H 97 03/04/20 16:55 85 18 119/76 98 03/04/20 16:45 86 22 125/86 100 03/04/20 16:35 79 12 128/72 97 03/04/20 16:25 81 18 120/77 99 03/04/20 16:15 83 20 118/77 100 03/04/20 16:05 84 15 117/61 99 03/04/20 15:55 86 13 118/71 99 03/04/20 15:45 89 20 112/73 99 03/04/20 15:35 81 12 117/72 100 03/04/20 15:25 85 20 113/67 99 03/04/20 15:15 89 19 115/57 L 96 03/04/20 15:06 36.5 C 90 13 126/57 L 96 03/04/20 10:38 36.8 C 82 18 148/97 H 98 Pain Intensity Left Knee: Pain Intensity: 4 Transfer of Care Handoff Completed per policy Notes Mental Status: alert / awake / arousable and participated in evaluation Patient Amnestic to Procedure: Yes Nausea / Vomiting: adequately controlled Pain: adequately controlled Airway Patency, RR, SpO2: stable & adequate BP & HR: stable & adequate Hydration State: stable & adequate Anesthetic Complications: no major complications apparent and Pt Satisfied with anesthetic care
[2020-03-04] MEDS ORDERED: SODIUM CHLORIDE 0.9% 1000ML 1,000 ML IV SCH (17:44)
[2020-03-04] MEDS ORDERED: bisacodyL 10 MG SUPP PR PRN (17:44)
[2020-03-04] MEDS ORDERED: METOCLOPRAMIDE HCL INJ 5 MG/ML 2 ML VIAL IV PRN (17:44)
[2020-03-04] MEDS ORDERED: NALOXONE HCL 0.4 MG/1 ML VIAL/CARP IV PRN (17:44)
[2020-03-04] MEDS ORDERED: MAGNESIUM HYDROXIDE SUSP 30 ML UDC PO PRN (17:44)
[2020-03-04] MEDS ORDERED: PHARMACY GLYCEMIC MGMT CONSULT PRN (18:05)
[2020-03-04] MEDS ORDERED: NovoLIN-N (NPH) PER UNIT CHARGE SQ ONE (18:30)
[2020-03-04] MEDS: INSULIN ASPART 100 UNITS/ML 3 ML PEN SC SCH ×3 (18:56→23:42)
[2020-03-04] MEDS ORDERED: ROPINIROLE HCL 1 MG TABLET PO SCH (21:00)
[2020-03-04] MEDS ORDERED: ATORVASTATIN 20 MG TAB PO SCH (21:00)
[2020-03-04] MEDS ORDERED: SENNA 8.6 MG TAB PO SCH (21:00)
[2020-03-04] MEDS ORDERED: MAGNESIUM OXIDE 400 MG TAB PO SCH (21:00)
[2020-03-04] MEDS ORDERED: TRAZODONE HCL 50 MG TAB PO SCH (21:00)
[2020-03-04] MEDS ORDERED: FLUTICASONE PROPIONATE NA SPR 16 GM BTL NAE SCH (21:00)
[2020-03-04] MEDS: KETOROLAC TROMETHAMINE 15 MG/ML VIAL IV SCH ×2 (21:30→23:42)
[2020-03-04] MEDS: DULOXETINE HCL 60 MG CAP PO SCH (21:33)
[2020-03-04] MEDS: miSOPROStoL 200 MCG TAB PO SCH (21:33)
[2020-03-04] MEDS: DOCUSATE SODIUM 100 MG CAP PO SCH (21:33)
[2020-03-04] MEDS: CYCLOBENZAPRINE HCL 10 MG TAB PO SCH (21:34)
[2020-03-04] MEDS: ASPIRIN 81 MG ECTAB PO SCH (21:34)
[2020-03-04] MEDS: PANTOprazole 40 MG TAB PO SCH (21:34)
[2020-03-04] MEDS: GABAPENTIN 400 MG CAP PO SCH (21:36)
[2020-03-04] MEDS: ACETAMINOPHEN 500 MG TAB PO SCH (21:36)
[2020-03-04] MEDS: guaiFENesin 600 MG TABCR PO SCH (21:36)
[2020-03-04] MEDS: CEFAZOLIN 2000MG 2,000 MG/15 ML SYR IV SCH (21:46)
[2020-03-05] MEDS: OXYCODONE HCL IR 5 MG TAB (IMMEDIATE RELEASE) PO PRN ×2 (00:55→06:15)
[2020-03-05] MEDS: CEFAZOLIN 2000MG 2,000 MG/15 ML SYR IV SCH (03:47)
[2020-03-05] MEDS: ACETAMINOPHEN 500 MG TAB PO SCH ×2 (03:49→12:11)
[2020-03-05] MEDS: INSULIN ASPART 100 UNITS/ML 3 ML PEN SC SCH ×3 (03:50→12:24)
[2020-03-05 05:58] LABS: Hematocrit (blood only) 36.4 % (42-52); Hemoglobin 12.2 g/dL (14.0-18.0); Mean Corpuscular Hgb Conc 33.5 g/dL (32-36); Mean Corpuscular Volume 86.5 fL (80-100); Mean Platelet Volume 9.1 fL (7.4-10.4); Platelet Count 299 K/uL (130-400); RDW Coefficient of Variation 13.2 % (11.5-14.5); RDW Standard Deviation 42.1 fL (36.4-46.3); Red Blood Count 4.21 M/uL (4.7-6.1); White Blood Count 13.64 K/uL (4.8-10.8)
[2020-03-05 06:33] LABS: BUN Creatinine Ratio 12.5 (10-20); Creatinine Clr Calc Pharmacy 122.5 ml/min; Est GFR (African American) 94.1; Est GFR (Non-African American) 81.2; Potassium 4.1 mmol/L (3.5-5.1)
--- NOTE | 2020-03-05 07:12 | Orthopedic Progress Note ---
Date of Service March 05, 2020 Assessment & Plan (1) History of total left knee replacement: POD #1 s/p Left TKA pt/ot dvt proph with MARGOTH/SCD/ASA plan for d/c home with OPPT, will recheck after PT. Admission and Anticipated Discharge Date Admission Date: March 04, 2020 Subjective POD #1 s/p Left TKA Review of Systems Constitutional: no fever, no chills and no sweats Respiratory: no cough and no dyspnea Cardiovascular: no chest pain and no dyspnea Gastrointestinal: no abdominal pain, no nausea and no vomiting Physical Exam Physical Exam: Vital Signs Temp 36.6 C 03/05/20 07:05 Pulse 90 03/05/20 07:05 Resp 16 03/05/20 07:05 BP 148/80 H 03/05/20 07:05 Pulse Ox 99 03/05/20 07:05 Intake & Output 03/04/20 03/05/20 03/05/20 18:59 06:59 18:59 Intake Total 2400 / 3152.5 752.5 / 3152.5 Output Total 50 / 2600 2550 / 2600 Balance 2350 / 552.5 -1797.5 / 552.5 Weight 143.34 kg Intake: IV 1000 / 1072.5 72.5 / 1072.5 Ancef 3000MG 7 2.5 ml @ 130 mls/ 72.5 / 72.5 hr IV PREOP SC H Rx#:[id number] Lr 1,000 ml @ 15 mls/hr IV . 800 / 800 Q24H [facility] Rx#:[id number] TRANEXAMIC ACI D / 0.7% NACL 1, 200 / 200 000 mg In 100 ml @ 600 mls/hr IV TODAY@0600 [facility] Rx#:[id number] IV Perioperative 1400 / 1400 Oral 680 / 680 Output: Urine 2200 / 2200 Estimated Blood Loss 10 / 10 Drain Output 40 / 390 350 / 390 Left Knee 40 / 390 350 / 390 Other: # Unmeasured Voi ds 1 Constitutional: WD/WN, vitals as above no acute distress Musculoskeletal: Left Leg: NVDI, calf SNT, negative etcor sign. DP palpable, able to wiggle toes/ankle movement without difficulty. dressing clean dry and intact. Results & Data ([facility]) Vital Signs (Past 12 Hours) Vital Signs Temp Pulse Resp BP Pulse Ox 03/05/20 07:05 36.6 C 90 16 148/80 H 99 03/04/20 23:05 36.6 C 88 20 125/72 93 03/04/20 20:44 36.2 C L 94 H 18 143/76 H 97 03/04/20 19:40 36.5 C 97 H 20 120/71 98 Laboratory Results Laboratory Results WBC 13.64 K/uL (4.8-10.8) H 03/05/20 05:41 RBC 4.21 M/uL (4.7-6.1) L 03/05/20 05:41 Hgb 12.2 g/dL (14.0-18.0) L 03/05/20 05:41 Hct 36.4 % (42-52) L 03/05/20 05:41 MCV 86.5 fL (80-100) 03/05/20 05:41 MCH 29.0 pg (25-34) 03/05/20 05:41 MCHC 33.5 g/dL (32-36) 03/05/20 05:41 RDW Std Deviation 42.1 fL (36.4-46.3) 03/05/20 05:41 RDW Coeff of Sil 13.2 % (11.5-14.5) 03/05/20 05:41 Plt Count 299 K/uL (130-400) 03/05/20 05:41 MPV 9.1 fL (7.4-10.4) 03/05/20 05:41 Immature Gran % (Auto) 0.2 % 02/11/20 14:49 Neut % (Auto) 80.3 % 02/11/20 14:49 Lymph % (Auto) 13.5 % 02/11/20 14:49 [place] % (Auto) 4.9 % 02/11/20 14:49 Eos % (Auto) 0.8 % 02/11/20 14:49 Baso % (Auto) 0.3 % 02/11/20 14:49 Neut # (Auto) 7.63 K/uL (1.4-6.5) H 02/11/20 14:49 Lymph # (Auto) 1.28 K/uL (1.2-3.4) 02/11/20 14:49 [place] # (Auto) 0.47 K/uL (0.11-0.59) 02/11/20 14:49 Eos # (Auto) 0.08 K/uL (0-0.5) 02/11/20 14:49 Baso # (Auto) 0.03 K/uL (0-0.2) 02/11/20 14:49 Immature Gran # (Auto) 0.02 K/uL (0.00-0.02) 02/11/20 14:49 PT 10.6 Seconds (9.0-12.0) 02/11/20 14:49 INR 1.0 (0.9-1.1) 02/11/20 14:49 APTT 28.1 Seconds (21.0-31.0) 02/11/20 14:49 PTT Ratio 1.0 02/11/20 14:49 Sodium 138 mmol/L (136-145) 03/05/20 05:41 Potassium 4.1 mmol/L (3.5-5.1) 03/05/20 05:41 Chloride 105 mmol/L (98-107) 03/05/20 05:41 Carbon Dioxide 25 mmol/L (21-32) 03/05/20 05:41 Anion Gap 8.0 (3-11) 03/05/20 05:41 BUN 13 mg/dl (7-18) 03/05/20 05:41 Creatinine 1.05 mg/dl (0.6-1.4) 03/05/20 05:41 Est Cr Clr Drug Dosing 122.5 ml/min 03/05/20 05:41 Est GFR ( Amer) 94.1 03/05/20 05:41 Est GFR (Non-Af Amer) 81.2 03/05/20 05:41 BUN/Creatinine Ratio 12.5 (10-20) 03/05/20 05:41 Glucose 176 mg/dl (70-99) H 03/05/20 05:41 POC Glucose 165 mg/dl (70-99) H 03/05/20 03:49 Estimat Average Glucose 157 mg/dl 02/11/20 14:49 Hemoglobin A1c 7.1 % (4.5-5.6) H 02/11/20 14:49 Calcium 9.0 mg/dl (8.5-10.1) 03/05/20 05:41 Albumin 4.2 gm/dl (3.4-5.0) 02/11/20 14:49 Urine Color Yellow 02/11/20 14:49 Urine Appearance Clear (Clear) 02/11/20 14:49 Urine pH 6.5 (4.5-7.5) 02/11/20 14:49 Ur Specific [place] 1.007 (1.000-1.030) 02/11/20 14:49 Urine Protein Negative (Negative) 02/11/20 14:49 Urine Glucose (UA) Negative (Negative) 02/11/20 14:49 Urine Ketones Negative (Negative) 02/11/20 14:49 Urine Blood Negative (Negative) 02/11/20 14:49 Urine Nitrite Negative (Negative) 02/11/20 14:49 Urine Bilirubin Negative (Negative) 02/11/20 14:49 Urine Urobilinogen Negative (Negative) 02/11/20 14:49 Ur Leukocyte Esterase Negative (Negative) 02/11/20 14:49 Blood Type A Positive 02/11/20 14:49 Antibody Screen NEGATIVE 02/11/20 14:49 Diagnostic Findings XR knee LT 1 or 2V routine HISTORY: 54 years-old Male Surgical Post Op left knee total joint arthroplasty COMPARISON: None TECHNIQUE: 2 views of the left knee FINDINGS: Left knee total joint arthroplasty and patella resurfacing. Surgical drainage catheter. Expected postsurgical soft tissue swelling and deep tissue air. Satisfactory alignment without acute fracture or retained foreign body. IMPRESSION: Left knee total joint arthroplasty and patella resurfacing with expected postoperative changes.
[2020-03-05] MEDS ORDERED: METFORMIN HCL 500 MG TAB PO SCH (08:00)
[2020-03-05] MEDS: KETOROLAC TROMETHAMINE 15 MG/ML VIAL IV SCH ×2 (08:31→12:12)
[2020-03-05] MEDS: DOCUSATE SODIUM 100 MG CAP PO SCH (08:32)
[2020-03-05] MEDS: miSOPROStoL 200 MCG TAB PO SCH (08:33)
[2020-03-05] MEDS: DULOXETINE HCL 60 MG CAP PO SCH (08:33)
[2020-03-05] MEDS: ASPIRIN 81 MG ECTAB PO SCH (08:33)
[2020-03-05] MEDS: guaiFENesin 600 MG TABCR PO SCH (08:34)
[2020-03-05] MEDS: CYCLOBENZAPRINE HCL 10 MG TAB PO SCH ×2 (08:34→12:11)
[2020-03-05] MEDS: GABAPENTIN 400 MG CAP PO SCH ×2 (08:35→12:11)
[2020-03-05] MEDS: PANTOprazole 40 MG TAB PO SCH (08:36)
--- NOTE | 2020-03-05 08:40 | Pharmacy Report ---
Pharmacy Glycemic Short Note 2 - Date of Service March 05, 2020 - Glycemic Short BSG Results (Last 24 hours): 03/04/20 03/04/20 03/04/20 10:47 15:11 17:45 Glucose POC Glucose 115 H 132 H 178 H 03/04/20 03/04/20 03/05/20 20:47 23:40 03:49 Glucose POC Glucose 230 H 155 H 165 H 03/05/20 05:41 Glucose 176 H POC Glucose OUTPATIENT ANTIDIABETIC REGIMEN: * METFORMIN 1000 mg PO BID * A1c = 7.1% (02/11/20) ASSESSMENT: * Adair is a 54 yo T2DM male POD #1 s/p L TKA * Hyperglycemia noted the evening after surgery likely due to administration of dexamethasone pre-op. There are no ongoing steroids ordered, therefore I anticipate improvement in BSG today. Patient was given a one time dose of NPH 20 units last evening to combat steroid induced hyperglycemia. * Renal function is at baseline and patient is tolerating an oral diet. I will restart metformin today. * Post prandial BSGs are elevated. Will conservatively tighten carb coverage. May need to loosen later this evening once metformin effects are seen. PLAN FOR INPATIENT GLYCEMIC CONTROL: * Metformin 1000 mg PO BID * Basal insulin * none * Bolus insulin * NovoLog per scale ACHS or Q6hrs while NPO * Goal Range: Low 110 mg/dL - High 140 mg/dL * Correction Factor: 15 mg/dL/unit * Nutritional / Prandial insulin per carb ratio of 1 unit per 54grams CHO consumed PLAN FOR DISCHARGE: * A1c of 7.1% is acceptable. Continue home regimen on discharge.
[2020-03-05] MEDS ORDERED: FERROUS SULFATE 325 MG TAB PO SCH (09:00)
[2020-03-05] MEDS ORDERED: AMLODIPINE BESYLATE 5 MG TAB PO SCH (09:00)
[2020-03-05] MEDS ORDERED: LIDOCAINE 5% 1 PATCH TD SCH (09:00)
[2020-03-05] MEDS ORDERED: lisinopriL 10 MG TAB PO SCH (09:00)
[2020-03-05] MEDS ORDERED: MULTIVITAMIN TAB PO SCH (09:00)
[2020-03-05] MEDS ORDERED: CeleBREX 200 MG CAP PO SCH (21:00)
--- NOTE | 2020-03-06 07:14 | Discharge Summary ---
Date of Service date of discharge: March 05, 2020 date of admission: 03-04-20 Admission HPI Per Admitting Provider Adair is a 54 year old male who complains of left knee pain, presents for pre- op evaluation prior to a left total knee replacement by dr Osorio at [facility]. He complains of pain, crepitus, decreased range of motion, instability and stiffness in the left knee. He states that the symptoms have been chronic and non-traumatic and the symptoms occur constantly with intermittent worsening. Currently the patient states that the symptoms are moderate-severe. The pain is described as aching, sharp and throbbing. The symptoms occur continuously. The symptoms are aggravated by ascending stairs, daily activities, first steps while awake walking. Prior NSAIDs include Aleve and IBU. He has been treated with previous cortisone and visco injections in the past without much relief. Principal Diagnosis left knee osteoarthritis Discharge Exam Vital Signs Temp 36.6 C 03/05/20 15:13 Pulse 90 03/05/20 15:13 Resp 16 03/05/20 15:13 BP 148/80 H 03/05/20 15:13 Pulse Ox 99 03/05/20 15:13 Intake & Output 03/05/20 03/06/20 03/06/20 18:59 06:59 18:59 Intake Total 300 / 300 Output Total 200 / 200 Balance 100 / 100 Weight 143.34 kg Intake: Oral 300 / 300 Output: Drain Output 200 / 200 Left Knee 200 / 200 Constitutional WD/WN, vitals as above no acute distress Musculoskeletal left knee: NVDI, calf SNT, negative ector sign. DP palpable, able to wiggle toes/ankle movement without difficulty. Incision clean dry and intact. expected post-operative bruising noted. Discharge Data Allergies Allergy/AdvReac Type Severity Reaction Status Date / Time etodolac AdvReac Intermediate SCREAMING Verified 03/04/20 10:55 HEADACHE Consultations 03/04/20 17:44 Consult Case Management - Discharge Planning Routine Procedures Performed Operation Date: 03/04/20 12:20 Actual Procedures p Left Total Knee Arthroplasty - Crispin Osorio DO Ordered Studies 03/04/20 05:00 US - OR guided needle placemen Routine Hospital Course (1) History of total left knee replacement: POD #1 s/p Left TKA pt/ot dvt proph with MARGOTH/SCD/ASA plan for d/c home with OPPT, will recheck after PT. Laboratory Results WBC 13.64 K/uL (4.8-10.8) H 03/05/20 05:41 RBC 4.21 M/uL (4.7-6.1) L 03/05/20 05:41 Hgb 12.2 g/dL (14.0-18.0) L 03/05/20 05:41 Hct 36.4 % (42-52) L 03/05/20 05:41 MCV 86.5 fL (80-100) 03/05/20 05:41 MCH 29.0 pg (25-34) 03/05/20 05:41 MCHC 33.5 g/dL (32-36) 03/05/20 05:41 RDW Std Deviation 42.1 fL (36.4-46.3) 03/05/20 05:41 RDW Coeff of Sil 13.2 % (11.5-14.5) 03/05/20 05:41 Plt Count 299 K/uL (130-400) 03/05/20 05:41 MPV 9.1 fL (7.4-10.4) 03/05/20 05:41 Immature Gran % (Auto) 0.2 % 02/11/20 14:49 Neut % (Auto) 80.3 % 02/11/20 14:49 Lymph % (Auto) 13.5 % 02/11/20 14:49 [place] % (Auto) 4.9 % 02/11/20 14:49 Eos % (Auto) 0.8 % 02/11/20 14:49 Baso % (Auto) 0.3 % 02/11/20 14:49 Neut # (Auto) 7.63 K/uL (1.4-6.5) H 02/11/20 14:49 Lymph # (Auto) 1.28 K/uL (1.2-3.4) 02/11/20 14:49 [place] # (Auto) 0.47 K/uL (0.11-0.59) 02/11/20 14:49 Eos # (Auto) 0.08 K/uL (0-0.5) 02/11/20 14:49 Baso # (Auto) 0.03 K/uL (0-0.2) 02/11/20 14:49 Immature Gran # (Auto) 0.02 K/uL (0.00-0.02) 02/11/20 14:49 PT 10.6 Seconds (9.0-12.0) 02/11/20 14:49 INR 1.0 (0.9-1.1) 02/11/20 14:49 APTT 28.1 Seconds (21.0-31.0) 02/11/20 14:49 PTT Ratio 1.0 02/11/20 14:49 Sodium 138 mmol/L (136-145) 03/05/20 05:41 Potassium 4.1 mmol/L (3.5-5.1) 03/05/20 05:41 Chloride 105 mmol/L (98-107) 03/05/20 05:41 Carbon Dioxide 25 mmol/L (21-32) 03/05/20 05:41 Anion Gap 8.0 (3-11) 03/05/20 05:41 BUN 13 mg/dl (7-18) 03/05/20 05:41 Creatinine 1.05 mg/dl (0.6-1.4) 03/05/20 05:41 Est Cr Clr Drug Dosing 122.5 ml/min 03/05/20 05:41 Est GFR ( Amer) 94.1 03/05/20 05:41 Est GFR (Non-Af Amer) 81.2 03/05/20 05:41 BUN/Creatinine Ratio 12.5 (10-20) 03/05/20 05:41 Glucose 176 mg/dl (70-99) H 03/05/20 05:41 POC Glucose 172 mg/dl (70-99) H 03/05/20 11:53 Estimat Average Glucose 157 mg/dl 02/11/20 14:49 Hemoglobin A1c 7.1 % (4.5-5.6) H 02/11/20 14:49 Calcium 9.0 mg/dl (8.5-10.1) 03/05/20 05:41 Albumin 4.2 gm/dl (3.4-5.0) 02/11/20 14:49 Urine Color Yellow 02/11/20 14:49 Urine Appearance Clear (Clear) 02/11/20 14:49 Urine pH 6.5 (4.5-7.5) 02/11/20 14:49 Ur Specific [place] 1.007 (1.000-1.030) 02/11/20 14:49 Urine Protein Negative (Negative) 02/11/20 14:49 Urine Glucose (UA) Negative (Negative) 02/11/20 14:49 Urine Ketones Negative (Negative) 02/11/20 14:49 Urine Blood Negative (Negative) 02/11/20 14:49 Urine Nitrite Negative (Negative) 02/11/20 14:49 Urine Bilirubin Negative (Negative) 02/11/20 14:49 Urine Urobilinogen Negative (Negative) 02/11/20 14:49 Ur Leukocyte Esterase Negative (Negative) 02/11/20 14:49 Blood Type A Positive 02/11/20 14:49 Antibody Screen NEGATIVE 02/11/20 14:49 Total Time Total Time Spent Total Time Spent (In Minutes): 20 Total Time Includes: Examination of the Patient, Discharge Planning and Medication Reconciliation Discharge Plan Discharge Items Patient Disposition: Home - Self-Care Reason For Visit: Unilateral Primary Osteoarthritis, Left Knee Discharge Diagnosis: left total knee replacement Condition on Discharge: Good Activity: Per Instructions section Lifting: Wait until after follow-up appointment Weightbearing Comment: WBAT with walker Non-emergency contact: Surgeon Call non-emergency contact if: you have any medication questions, your temperature is above 101, your wound has increased redness, your wound has increased drainage and your wound pain has increased Follow-up/Referrals: Marcy Chatman M.D. [Primary Care Provider] - Diet: Regular Addtl Attending Provider Instructions: ACTIVITY RECOMMENDATIONS: SELF CARE INSTRUCTIONS AFTER TOTAL KNEE REPLACEMENT A. You may need to continue a physical therapy program after discharge from the hospital. There are several options available to you. Your doctor will assist you in selecting the best one for you. 1. An out-patient facility 2 to 3 times a week for therapy or home therapy. 2. Continue working on all exercises taught to you in the hospital. Your goals should be to increase bending of your knee to 90 degrees and beyond and to fully straighten your knee. B. You may progress at your own pace from walking with a walker or crutches to a cane; then to no assistive devices. C. Make walking a part of your daily routine. Be up as much as comfortable with rest periods throughout the day. Rest with leg elevation is very important. Use the ice wrap frequently for the first 3-4 weeks. D. There are no restrictions on activities. You may ride in a car, shop, participate in underground supervisor and all social activities. E. Wear the long elastic stockings (MARGOTH hose) 20 hours a day for 2 weeks after surgery. They can be removed several times a day for laundering and for a bath. F. You may shower, no tub baths until cleared by your doctor. SPECIAL CARE INSTRUCTIONS: VERY IMPORTANT TO READ AND REVIEW A. There are a few signs you need to watch for after you are home. Call [facility] if you notice any of the followin. Increased severe knee pain. Some pain is expected especially when you exercise. 2. Increased swelling in your leg or knee; pain or swelling of the calf muscle in either lower leg. 3. Any fluid drainage from the incision. 4. Shortness of breath or chest pain. B. Please call [facility] at if you have any concerns or questions about your operation or recovery. The doctor or his nurse will return your call promptly. C. You must take antibiotics before dental work, bladder, bowel or other surgery. Your doctor will provide you with a permanent care to carry describing this precaution. IMPORTANT: * REMEMBER TO TAKE ASPIRIN, 81 MG, TWICE DAILY FOR 4 WEEKS UNLESS OTHERWISE DIRECTED. THIS IS YOUR BLOOD THINNER. * HIGH RISK PATIENTS MAY BE PRESCRIBED A STRONGER BLOOD THINNER. THIS WILL BE PROVIDED AT DISCHARGE. * CALL IF INCREASED PAIN, REDNESS, DRAINAGE OR FEVER GREATER THAT 101. * WEAR MARGOTH HOSE 20 HOURS PER DAY FOR 2 WEEKS. * DERMABOND [place]- This is a mesh tape dressing that is covered with glue. It should remain in place until the incision is properly healed, usually 10-14 days. This dressing is designed to naturally slough off. You may trim the excess mesh tape as it peels off. Incision may be briefly wet in a shower. Dry immediately by blotting with a clean, dry towel. Do not bath or swim until instructed by your doctor. Do not scratch, rub, or pick at the dressing. Do not apply any topical ointments or lotions until dressing is completely removed and/or instructed by your doctor. There may be a small piece of suture material at one end of your incision. Do not pull or trim this. If it is bothersome or catching on clothing, you may cover it with a band-aid. IF INCISION IS LEAKING THROUGH DRESSING, CALL THE OFFICE . FOLLOW UP VISIT: If appointment is not already scheduled: Please call [facility] to make a follow-up appointment for 2 weeks after your surgery at . Pending Studies at Discharge: No Stand-Alone Forms: My [facility], Opioid Pain Management, Smoking Cessation Medications and DC Order Prescriptions: New celecoxib [Celebrex] 200 mg Capsule 200 mg PO BID 30 Days Qty: 60 RF: 0 aspirin 81 mg Tablet,Delayed Release (Dr/Ec) 81 mg PO BID 30 Days Qty: 60 RF: 0 acetaminophen 500 mg Tablet 1,000 mg PO Q8 21 Days Qty: 126 RF: 0 oxycodone 5 mg Tablet 5 - 10 mg PO Q6H PRN (Reason: pain) Qty: 30 RF: 0 docusate sodium 100 mg Capsule 100 mg PO BID 10 Days Qty: 20 RF: 0 cefadroxil 500 mg capsule 500 mg PO BID 10 Days Qty: 20 RF: 0 Continued magnesium oxide 420 mg Tablet 420 mg PO HS RF: 0 ferrous sulfate [iron] 325 mg (65 mg iron) Tablet 325 mg PO DAILY RF: 0 ropinirole 0.5 mg Tablet 1 mg PO HS RF: 0 fluticasone propionate 50 mcg/actuation [place],Suspension 2 spray INTRANASAL HS RF: 0 cyclobenzaprine 10 mg Tablet 10 mg PO TID RF: 0 atorvastatin 20 mg Tablet 20 mg PO HS RF: 0 trazodone 50 mg Tablet 50 mg PO HS RF: 0 gabapentin 400 mg Capsule 800 mg PO TID RF: 0 hydroxyzine HCl 50 mg Tablet 50 mg PO TID RF: 0 amlodipine 10 mg Tablet 10 mg PO QAM RF: 0 metformin 1,000 mg Tablet 1,000 mg PO BID RF: 0 lisinopril 10 mg Tablet 10 mg PO QAM RF: 0 misoprostol 200 mcg Tablet 400 mcg PO BID RF: 0 lidocaine 5 % Adhesive Patch,Medicated 1 patch TOPICAL QAM RF: 0 lansoprazole 15 mg Capsule,Delayed Release(Dr/Ec) 15 mg PO BID RF: 0 duloxetine 30 mg Capsule,Delayed Release(Dr/Ec) 60 mg PO BID RF: 0 guaifenesin [Mucinex] 600 mg Tablet Extended Release 12hr 400 mg PO BID RF: 0 Blood Sugar Support 1 cap PO QAM RF: 0 Discontinued diclofenac sodium 50 mg Tablet,Delayed Release (Dr/Ec) 50 mg PO BID RF: 0 diclofenac sodium 1 % Gel 2 g TOPICAL TID PRN (Reason: Pain) RF: 0 tramadol 100 mg Tablet, Er Multiphase 24 Hr 100 mg PO PM RF: 0 tramadol 200 mg Tablet, Er Multiphase 24 Hr 200 mg PO HS RF: 0 shasha extract 250 mg Capsule 550 mg PO QAM RF: 0 milk thistle 500 mg Capsule 1,000 mg PO QAM RF: 0 aspirin 81 mg Tablet,Delayed Release (Dr/Ec) 81 mg PO QAM RF: 0 [place]-3 350 mg-235 mg- 90 mg-597 mg Capsule,Delayed Release(Dr/Ec) 2 cap PO QAM RF: 0 Discharge Orders: Discharge Order (Routine); Ordered 03/05/20 Ordered By: Edwin De La Cruz/Other Patient Handouts: Managing Type 2 Diabetes, Preventing Deep Vein Thrombosis, Managing Diabetes: The A1C Test Admission Data Admit Date/Time: 03/04/20 15:25 Attending Provider: Crispin Osorio Admit Provider: Crispin Osorio Primary Care Provider: Marcy Chatman. Other Interventions: Discharge Summary Assessment (RN) Last Done: 03/05/20 15:13
== END 2020-03-05 17:47 | disposition home or self-care (01) | DRG 470 ==
LOC: 3E 10:20 → ASU 10:20 → OBSVTOIN 15:25